=== PATIENT | male | born 1990 ===

== ENCOUNTER 2020-12-27 18:33 | Inpatient (IN) | payer OTHER ==
[~2020-12-27] VITALS: Ht 185.4 cm; Wt 93.1 kg
--- NOTE | 2020-12-27 18:35 | NUR ---
Patient brought in by EMS in respiratory distress. Non rebreather, compressions done in the field. EMS given 2 epi, 2 narcan with no result. Pt in sinus tach. HR 129, 98%, RR12, RR92 45. Respiratory in room. BG 243. Intubation with 8, using MAC 4, 24 at the teeth. 18 G in L AC. Central line in rt groin.
[2020-12-27] MEDS ORDERED: propofol 1000mg/100ml bottle 100 ML IV ONE (18:48)
[2020-12-27 19:13] LABS: BASOPHILS # (AUTO) 0.1 X10'3 (0-0.2); BASOPHILS % (AUTO) 0.8 % (0-1); EOSINOPHILS # (AUTO) 0.1 X10'3 (0-0.9); EOSINOPHILS % (AUTO) 1.2 % (0-6); HEMATOCRIT 43.7 % (42.0-52.0); HEMOGLOBIN 14.7 g/dl (14.0-17.9); LYMPHOCYTES # (AUTO) 1.9 X10'3 (1.1-4.8); LYMPHOCYTES % (AUTO) 28.2 % (21-51); MEAN CORPUSCULAR HEMOGLOBIN 34.4 PG (27.0-31.0); MEAN CORPUSCULAR HGB CONC 33.6 g/dL (33.0-36.5); MEAN CORPUSCULAR VOLUME 102.2 FL (78-98); MEAN PLATELET VOLUME 7.5 FL (7.4-10.4); MONOCYTES # (AUTO) 0.2 X10'3 (0-0.9); MONOCYTES % (AUTO) 3.4 % (2-12); NEUTROPHILS # (AUTO) 4.5 X10'3 (1.8-7.7); NEUTROPHILS % (AUTO) 66.4 % (42-75); PLATELET COUNT 149 X10'3 (140-440); RED BLOOD COUNT 4.27 X10'6 (4.70-6.10); RED CELL DISTRIBUTION WIDTH 15.4 % (11.5-14.5); WHITE BLOOD COUNT 6.7 X10'3 (4.5-11.0)
[2020-12-27 19:25] LABS: ALANINE AMINOTRANSFERASE 137 U/L (12-78); ALBUMIN 3.3 G/DL (3.4-5.0); ALBUMIN/GLOBULIN RATIO 0.9 (1.1-1.5); ALKALINE PHOSPHATASE 224 IU/L (46-116); ANION GAP 23 (8-16); ASPARTATE AMINO TRANSFERASE 536 U/L (10-37); BILIRUBIN,DIRECT 0.2 MG/DL (0-0.3); BILIRUBIN,TOTAL 0.4 MG/DL (0.1-1.0); BLOOD UREA NITROGEN 17 MG/DL (7-18); BUN/CREATININE RATIO 9.7 (5.4-32.0); CALCIUM 7.9 MG/DL (8.5-10.1); CHLORIDE 100 MMOL/L (99-107); CREATINE KINASE 215 U/L (39-308); CREATININE 1.75 MG/DL (0.60-1.10); GLUCOSE 252 MG/DL (70-104); LIPASE 401 U/L (73-393); POTASSIUM 3.8 MMOL/L (3.5-5.1); SODIUM 142 MMOL/L (135-145); TOTAL CARBON DIOXIDE 19.3 MMOL/L (24-32); TOTAL PROTEIN 7.1 G/DL (6.4-8.2); eGFR 45 ML/MIN
[2020-12-27 19:33] LABS: LACTIC SEPSIS 9.2 MMOL/L (0.4-2.0)
[2020-12-27] MEDS ORDERED: normal saline 1000ml 1,000 ML IV ONE (19:35)
[2020-12-27 19:38] LABS: URINE AMPHETAMINE SCREEN NEGATIVE (Neg); URINE BARBITUATE SCREEN NEGATIVE (Neg); URINE BENZODIAZEPINES SCREEN NEGATIVE (Neg); URINE CANNABINOID SCREEN NEGATIVE (Neg); URINE COCAINE SCREEN NEGATIVE (Neg); URINE METHADONE SCREEN NEGATIVE (Neg); URINE OPIATE SCREEN NEGATIVE (Neg); URINE PHENCYCLIDINE SCREEN NEGATIVE (Neg)
[2020-12-27 19:46] LABS: ABG BASE EXCESS -10.2 mmol/L (-2.0-2.0); ABG HCO3 14.1 mmol/L (22.0-26.0); ABG OXYGEN SATURATION 98.3 % (94-97); ABG PO2 (T) 145.7 mmHg (75.0-100.0); ALLEN'S TEST POSITIVE; FCOHb 0.3 % (0.0-3.9); FMetHb 0.4 % (0.0-1.5); FO2Hb 97.6 % (94-97); PATIENT TEMPERATURE 36.9; PEEP 5 cm H2O; RESPIRATORY RATE 16 b/min; TIDAL VOLUME 450 mL; TOTAL HEMOGLOBIN 16.4 G/dl (14.0-18.0)
[2020-12-27] MEDS ORDERED: normal saline 1000ML IV soln IVB ONE ×2 (20:15)
[2020-12-27] MEDS ORDERED: dextrose 50%-water 50ml dispensing syringe IV PRN (21:15)
[2020-12-27] MEDS: Insulin Reg/NS 100units/100mL 100 ML IV SCH (21:15)
[2020-12-27] MEDS ORDERED: dexmedetomidin/NS 400mcg/100ml 100 ML IV SCH (21:25)
--- NOTE | 2020-12-27 21:30 | NUR ---
cooling measures attempted with ice packs in groin and armpits.
--- NOTE | 2020-12-27 22:03 | NUR ---
Pt continues to display seizure like movement when stimulated but also at random moments. Pt body siezes for about a second, then stops. Patient jaw is clenched, biting on the ET tube and OG tube. [employer] Direction Specialist aware.
[2020-12-27] MEDS ORDERED: propofol 1000mg/100ml bottle 100 ML IV SCH (23:00)
[2020-12-27 23:41] LABS: TRIGLYCERIDES 236 MG/DL (20-135)
[2020-12-27] MEDS: midazolam 100mg in NS 100ml 100 ML IV PRN (23:43)
[2020-12-28] VITALS (11 sets, daily range): BP systolic 98–127; BP diastolic 70–94
--- NOTE | 2020-12-28 00:06 | NUR ---
Midazolam titrated to 10mg/ hr. Body spasms decreased to spasms only with body stimulus.
[2020-12-28] MEDS ORDERED: acetaminophen 1,000mg/100ml IV 100 ML IV PRN (00:25)
[2020-12-28] MEDS ORDERED: ringers solution, lacted 1,000 ML IV ONE (00:25)
[2020-12-28 02:00] LABS: ALANINE AMINOTRANSFERASE 580 U/L (12-78); ALBUMIN 3.1 G/DL (3.4-5.0); ALBUMIN/GLOBULIN RATIO 0.9 (1.1-1.5); ALKALINE PHOSPHATASE 234 IU/L (46-116); ANION GAP 14 (8-16); BILIRUBIN,TOTAL 0.6 MG/DL (0.1-1.0); BLOOD UREA NITROGEN 19 MG/DL (7-18); BUN/CREATININE RATIO 13.8 (5.4-32.0); CALCIUM 6.9 MG/DL (8.5-10.1); CHLORIDE 108 MMOL/L (99-107); CKMB RELATIVE INDEX 1.9 RATIO (0-2.5); CREATINE KINASE 226 U/L (39-308); CREATININE 1.38 MG/DL (0.60-1.10); GLUCOSE 147 MG/DL (70-104); MAGNESIUM 1.4 MG/DL (1.5-2.4); POTASSIUM 3.6 MMOL/L (3.5-5.1); SODIUM 145 MMOL/L (135-145); TOTAL CARBON DIOXIDE 22.9 MMOL/L (24-32); TOTAL PROTEIN 6.5 G/DL (6.4-8.2); TRIGLYCERIDES 62 MG/DL (20-135); eGFR 59 ML/MIN
[2020-12-28 02:11] LABS: TROPONIN I 1.35 NG/ML (0.0-0.05)
--- NOTE | 2020-12-28 02:25 | NUR ---
TROPONIN 1.35. SPRUE CUTTING PRESS OPERATOR NOTIFIED.
[2020-12-28 03:30] LABS: ASPARTATE AMINO TRANSFERASE 1985 U/L (10-37)
[2020-12-28 05:28] LABS: ABG BASE EXCESS -1.8 mmol/L (-2.0-2.0); ABG HCO3 20.1 mmol/L (22.0-26.0); ABG OXYGEN SATURATION 98.5 % (94-97); ABG PCO2 (T) 28.4 mmHg (35.0-48.0); ABG PO2 (T) 141.7 mmHg (75.0-100.0); FCOHb 0.5 % (0.0-3.9); FMetHb 0.3 % (0.0-1.5); FO2Hb 97.7 % (94-97); PATIENT TEMPERATURE 37.7; PEEP 5 cm H2O; RESPIRATORY RATE 16 b/min; TIDAL VOLUME 450 mL; TOTAL HEMOGLOBIN 15.2 G/dl (14.0-18.0)
[2020-12-28 05:39] LABS: BASOPHILS % (AUTO) 0.2 % (0-1); EOSINOPHILS % (AUTO) 0 % (0-6); HEMATOCRIT 40.6 % (42.0-52.0); HEMOGLOBIN 13.9 g/dl (14.0-17.9); LYMPHOCYTES # (AUTO) 0.1 X10'3 (1.1-4.8); LYMPHOCYTES % (AUTO) 1.1 % (21-51); MEAN CORPUSCULAR HEMOGLOBIN 34.4 PG (27.0-31.0); MEAN CORPUSCULAR HGB CONC 34.2 g/dL (33.0-36.5); MEAN CORPUSCULAR VOLUME 100.4 FL (78-98); MEAN PLATELET VOLUME 8.2 FL (7.4-10.4); MONOCYTES # (AUTO) 0.2 X10'3 (0-0.9); MONOCYTES % (AUTO) 1.7 % (2-12); NEUTROPHILS # (AUTO) 11.7 X10'3 (1.8-7.7); PLATELET COUNT 106 X10'3 (140-440); RED BLOOD COUNT 4.05 X10'6 (4.70-6.10); RED CELL DISTRIBUTION WIDTH 15.3 % (11.5-14.5); WHITE BLOOD COUNT 12.1 X10'3 (4.5-11.0)
[2020-12-28 05:40] LABS: COLOR,URINE YELLOW (Yellow); UA COLLECTION TYPE FOLEY CATH
[2020-12-28 05:41] LABS: CLARITY,URINE CLOUDY (Clear); PROTEIN,URINE 30 mg/dl (Neg)
[2020-12-28 05:42] LABS: GLUCOSE, URINE NEGATIVE (Neg); KETONES,URINE TRACE mg/dl (Neg); LEUKOCYTE ESTERASE ,URINE NEGATIVE (Neg); NITRITES, URINE NEGATIVE (Neg); OCCULT BLOOD,URINE LARGE (Neg); UROBILINOGEN,URINE 0.2 E.U/dL (0.2-1.0)
[2020-12-28 05:51] LABS: AMORPHOUS URATES 2+; PARTIAL THROMBOPLASTIN TIME 22 SECONDS (22-32)
[2020-12-28 05:52] LABS: BACTERIA,URINE NONE SEEN /HPF (Neg); MUCUS STRANDS NONE SEEN /LPF (Neg); RBC,URINE 0-2 /HPF (0-2); SQUAMOUS EPITHELIAL CELL,UR NONE SEEN /LPF (FEW); WBC,URINE 0-4 /HPF (0-4)
[2020-12-28 05:55] LABS: ANISOCYTOSIS 1+; PLATELET ESTIMATE DECREASED; TOTAL CELLS COUNTED 100
[2020-12-28] MEDS: mineral oil/petrolatum ophthal oint EACHEYE SCH ×6 (07:10→19:39)
--- NOTE | 2020-12-28 07:15 | NUR ---
ATTEMPTING TO REACH STAMP COLLECTOR REGARDING PT HAVING FEVER OF 101.3 BUT HAS HIGH AST/ALT ENZYMES AND WANT TO CONFIRM ORDER BEFORE GIVING MED DUE TO LABS
--- NOTE | 2020-12-28 07:27 | NUR ---
spoke with toy parts former supervisor danielle. received verbal order for ibuprofen 400mg po through OG tube q6h prn fever. order placed as received
[2020-12-28 07:49] LABS: ALBUMIN 2.8 G/DL (3.4-5.0); ANION GAP 14 (8-16); BLOOD UREA NITROGEN 20 MG/DL (7-18); BUN/CREATININE RATIO 16.9 (5.4-32.0); CALCIUM 7.4 MG/DL (8.5-10.1); CHLORIDE 109 MMOL/L (99-107); CREATININE 1.18 MG/DL (0.60-1.10); GLUCOSE 139 MG/DL (70-104); MAGNESIUM 1.5 MG/DL (1.5-2.4); POTASSIUM 3.7 MMOL/L (3.5-5.1); SODIUM 145 MMOL/L (135-145); TOTAL CARBON DIOXIDE 21.6 MMOL/L (24-32); eGFR 71 ML/MIN
[2020-12-28] MEDS: ibuprofen tablet 400 MG TABLET PO PRN (07:57)
[2020-12-28] MEDS ORDERED: heparin, porcine 5000 units/ml vial SQ SCH (08:00)
[2020-12-28] MEDS ORDERED: pantoprazole 40 MG vial IV SCH (08:00)
[2020-12-28] MEDS: insulin Lispro (HumaLOG) vial - multi-dose SQ SCH ×3 (09:00→18:00)
[2020-12-28] MEDS ORDERED: UNABLE TO OBTAIN PO (10:40)
[2020-12-28 13:18] LABS: ANION GAP 12 (8-16); BLOOD UREA NITROGEN 21 MG/DL (7-18); BUN/CREATININE RATIO 16.5 (5.4-32.0); CALCIUM 7.6 MG/DL (8.5-10.1); CHLORIDE 107 MMOL/L (99-107); CKMB RELATIVE INDEX 1.1 RATIO (0-2.5); CREATINE KINASE 473 U/L (39-308); CREATININE 1.27 MG/DL (0.60-1.10); GLUCOSE 115 MG/DL (70-104); MAGNESIUM 1.8 MG/DL (1.5-2.4); POTASSIUM 3.7 MMOL/L (3.5-5.1); SODIUM 144 MMOL/L (135-145); TOTAL CARBON DIOXIDE 24.7 MMOL/L (24-32); eGFR 65 ML/MIN
[2020-12-28 13:23] LABS: TROPONIN I 0.87 NG/ML (0.0-0.05)
[2020-12-28] MEDS ORDERED: CISatracurium besylate inj. 100 MG in normal saline 100ml IV soln 90 ML IV PRN (14:20)
[2020-12-28] MEDS: FENTANYL-0.9 % NACL/PF 100 ML IV PRN ×2 (14:45→21:38)
[2020-12-28] MEDS ORDERED: potassium Cl 20 mEq SR tablet PO PRN ×2 (15:35)
[2020-12-28] MEDS ORDERED: potassium Cl 40MEQ/250ML bag 270 ML IV PRN (15:35)
[2020-12-28] MEDS ORDERED: acetaminophen 325mg tablet PO PRN ×2 (15:35)
[2020-12-28] MEDS ORDERED: ondansetron/PF 4mg/2ml inj IV PRN (15:35)
[2020-12-28] MEDS ORDERED: potassium Cl 40MEQ/1/2NS 520ml 520 ML IV PRN ×2 (15:35)
[2020-12-28] MEDS ORDERED: magnesium hydroxide 30ml (MOM) UD suspension PO PRN (15:35)
[2020-12-28] MEDS ORDERED: normal saline 1000ml 1,000 ML IV SCH (15:35)
[2020-12-28] MEDS ORDERED: CISatracurium **Bolus** 2 mg/ml inj IV PRN (15:35)
[2020-12-28] MEDS ORDERED: LIDOcaine 2% 10ml TOPICAL JELLY (Urojet) TP ONE (15:35)
[2020-12-28 17:39] LABS: ABG BASE EXCESS -3.1 mmol/L (-2.0-2.0); ABG HCO3 21.5 mmol/L (22.0-26.0); ABG OXYGEN SATURATION 98.6 % (94-97); ABG PCO2 (T) 31.4 mmHg (35.0-48.0); ABG PO2 (T) 119.4 mmHg (75.0-100.0); FCOHb 0.2 % (0.0-3.9); FMetHb 0.3 % (0.0-1.5); FO2Hb 98.1 % (94-97); PEEP 5 cm H2O; RESPIRATORY RATE 16 b/min; TIDAL VOLUME 488 mL; TOTAL HEMOGLOBIN 15.2 G/dl (14.0-18.0)
[2020-12-28] MEDS: famotidine/PF 10 mg/ml inj IV SCH (19:39)
[2020-12-28] MEDS: heparin, porcine 5000 units/ml vial SQ SCH (19:39)
[2020-12-28] MEDS: CISatracurium besylate inj. 100 MG in normal saline 100ml IV soln 90 ML IV PRN (19:57)
[2020-12-28] MEDS: docusate sod 100mg capsule PO SCH (20:00)
[2020-12-28] MEDS: sennosides/docusate sodium tablet PO SCH (21:00)
[2020-12-28] MEDS: Insulin Reg/NS 100units/100mL 100 ML IV SCH (21:15)
[2020-12-28 21:27] LABS: ABG HCO3 19.8 mmol/L (22.0-26.0); ABG OXYGEN SATURATION 85.1 % (94-97); ALLEN'S TEST POSITIVE; FCOHb 0.3 % (0.0-3.9); FMetHb 0.2 % (0.0-1.5); FO2Hb 84.7 % (94-97); PATIENT TEMPERATURE 32.6; PEEP 5 cm H2O; RESPIRATORY RATE 16 b/min; TIDAL VOLUME 450 mL; TOTAL HEMOGLOBIN 14.7 G/dl (14.0-18.0)
[2020-12-28 21:33] LABS: ALBUMIN 2.7 G/DL (3.4-5.0); ANION GAP 10 (8-16); BLOOD UREA NITROGEN 18 MG/DL (7-18); BUN/CREATININE RATIO 24.3 (5.4-32.0); CALCIUM 7.1 MG/DL (8.5-10.1); CHLORIDE 110 MMOL/L (99-107); CKMB RELATIVE INDEX 1.1 RATIO (0-2.5); CREATINE KINASE 449 U/L (39-308); CREATININE 0.74 MG/DL (0.60-1.10); GLUCOSE 83 MG/DL (70-104); POTASSIUM 3.1 MMOL/L (3.5-5.1); SODIUM 145 MMOL/L (135-145); TOTAL CARBON DIOXIDE 24.8 MMOL/L (24-32); TROPONIN I 0.33 NG/ML (0.0-0.05); eGFR > 90 ML/MIN
[2020-12-28] MEDS ORDERED: albumin (Human) 5% 250ml 250 ML IV ONE ×2 (21:35)
[2020-12-28] MEDS ORDERED: albumin (Human) 5% 250ml 500 ML IV ONE (21:49)
[2020-12-29] VITALS (23 sets, daily range): BP systolic 104–129; BP diastolic 77–97
[2020-12-29] MEDS: mineral oil/petrolatum ophthal oint EACHEYE SCH ×6 (00:31→20:04)
[2020-12-29] MEDS: CISatracurium besylate inj. 100 MG in normal saline 100ml IV soln 90 ML IV PRN ×2 (01:55→08:07)
[2020-12-29 03:19] LABS: ABG BASE EXCESS -4.3 mmol/L (-2.0-2.0); ABG HCO3 19.8 mmol/L (22.0-26.0); ABG OXYGEN SATURATION 97.6 % (94-97); ABG PCO2 (T) 28.1 mmHg (35.0-48.0); ABG PO2 (T) 84.9 mmHg (75.0-100.0); ALLEN'S TEST POSITIVE; FCOHb 0.3 % (0.0-3.9); FMetHb 0.2 % (0.0-1.5); FO2Hb 97.1 % (94-97); PATIENT TEMPERATURE 33.1; PEEP 5 cm H2O; RESPIRATORY RATE 16 b/min; TIDAL VOLUME 450 mL; TOTAL HEMOGLOBIN 13.2 G/dl (14.0-18.0)
[2020-12-29 03:52] LABS: PARTIAL THROMBOPLASTIN TIME 36 SECONDS (22-32)
[2020-12-29 04:07] LABS: ALANINE AMINOTRANSFERASE 591 U/L (12-78); ALBUMIN 2.7 G/DL (3.4-5.0); ALKALINE PHOSPHATASE 125 IU/L (46-116); ANION GAP 10 (8-16); BLOOD UREA NITROGEN 19 MG/DL (7-18); BUN/CREATININE RATIO 27.5 (5.4-32.0); CALCIUM 6.9 MG/DL (8.5-10.1); CHLORIDE 111 MMOL/L (99-107); CKMB RELATIVE INDEX 1.2 RATIO (0-2.5); CREATINE KINASE 424 U/L (39-308); CREATININE 0.69 MG/DL (0.60-1.10); GLUCOSE 62 MG/DL (70-104); MAGNESIUM 1.8 MG/DL (1.5-2.4); PHOSPHORUS 1.9 MG/DL (2.3-4.5); POTASSIUM 3.6 MMOL/L (3.5-5.1); SODIUM 144 MMOL/L (135-145); TOTAL CARBON DIOXIDE 23.2 MMOL/L (24-32); TOTAL PROTEIN 5.4 G/DL (6.4-8.2); TROPONIN I 0.23 NG/ML (0.0-0.05); eGFR > 90 ML/MIN
[2020-12-29 04:08] LABS: ASPARTATE AMINO TRANSFERASE 1829 U/L (10-37)
[2020-12-29 04:16] LABS: EOSINOPHILS # (AUTO) 0.1 X10'3 (0-0.9); EOSINOPHILS % (AUTO) 3.8 % (0-6); HEMATOCRIT 36.2 % (42.0-52.0); HEMOGLOBIN 12.6 g/dl (14.0-17.9); LYMPHOCYTES # (AUTO) 0.4 X10'3 (1.1-4.8); LYMPHOCYTES % (AUTO) 9.7 % (21-51); MEAN CORPUSCULAR HEMOGLOBIN 34.9 PG (27.0-31.0); MEAN CORPUSCULAR HGB CONC 34.8 g/dL (33.0-36.5); MEAN CORPUSCULAR VOLUME 100.1 FL (78-98); MEAN PLATELET VOLUME 7.7 FL (7.4-10.4); MONOCYTES % (AUTO) 1.2 % (2-12); NEUTROPHILS # (AUTO) 3.2 X10'3 (1.8-7.7); NEUTROPHILS % (AUTO) 84.3 % (42-75); RED BLOOD COUNT 3.61 X10'6 (4.70-6.10); RED CELL DISTRIBUTION WIDTH 15.3 % (11.5-14.5); WHITE BLOOD COUNT 3.8 X10'3 (4.5-11.0)
[2020-12-29 04:29] LABS: PLATELET COUNT 56 X10'3 (140-440)
[2020-12-29] MEDS: FENTANYL-0.9 % NACL/PF 100 ML IV PRN ×3 (04:38→21:59)
[2020-12-29] MEDS: midazolam 100mg in NS 100ml 100 ML IV PRN (04:39)
[2020-12-29] MEDS ORDERED: potassium phosphate inj 15 MMOL in normal saline 250ml IV soln 250 ML IV ONE (04:50)
[2020-12-29] MEDS ORDERED: ringers solution, lacted 1,000 ML IV ONE (04:50)
[2020-12-29] MEDS: CALCIUM GLUC 1gm/50ml NACL,iso 50 ML IV SCH ×2 (05:14→05:27)
[2020-12-29] MEDS: ringers solution, lacted 1,000 ML IV SCH ×3 (06:13→21:56)
[2020-12-29] MEDS: heparin, porcine 5000 units/ml vial SQ SCH (08:00)
[2020-12-29] MEDS: docusate sod 100mg capsule PO SCH ×2 (08:00→20:00)
[2020-12-29] MEDS: famotidine/PF 10 mg/ml inj IV SCH ×2 (08:17→20:03)
[2020-12-29 08:45] LABS: ABG HCO3 22.3 mmol/L (22.0-26.0); ABG OXYGEN SATURATION 96.9 % (94-97); ABG PCO2 (T) 34.2 mmHg (35.0-48.0); ABG PO2 (T) 76.8 mmHg (75.0-100.0); ALLEN'S TEST POSITIVE; FCOHb 0.2 % (0.0-3.9); FMetHb 0.3 % (0.0-1.5); FO2Hb 96.4 % (94-97); PEEP 5 cm H2O; RESPIRATORY RATE 14 b/min; TIDAL VOLUME 478 mL; TOTAL HEMOGLOBIN 12.9 G/dl (14.0-18.0)
[2020-12-29] MEDS: insulin Lispro (HumaLOG) vial - multi-dose SQ SCH ×3 (09:00→18:00)
[2020-12-29 09:46] LABS: ALBUMIN 2.4 G/DL (3.4-5.0); ANION GAP 8 (8-16); BLOOD UREA NITROGEN 15 MG/DL (7-18); BUN/CREATININE RATIO 24.2 (5.4-32.0); CALCIUM 7.8 MG/DL (8.5-10.1); CHLORIDE 112 MMOL/L (99-107); CKMB RELATIVE INDEX 1.3 RATIO (0-2.5); CREATINE KINASE 463 U/L (39-308); CREATININE 0.62 MG/DL (0.60-1.10); GLUCOSE 74 MG/DL (70-104); MAGNESIUM 1.7 MG/DL (1.5-2.4); POTASSIUM 3.3 MMOL/L (3.5-5.1); SODIUM 145 MMOL/L (135-145); TOTAL CARBON DIOXIDE 25.4 MMOL/L (24-32); TROPONIN I 0.19 NG/ML (0.0-0.05); eGFR > 90 ML/MIN
--- NOTE | 2020-12-29 11:22 | NUR ---
1000- Critical care rounds. Reported labs of elevated liver enzymes, Plt of 56, decreased blood glucose level and no nutrition ordered currently, increased diastolic BP. Order for tube feed to start, EEG, MRI of head no contrast, hold heparin, no orders for BP. 1100-Follow up on round orders-EEG tomorrow after patient normothermic, OK to change MRI to nuc med scan (d/t MRI screening unable to be completed)
--- NOTE | 2020-12-29 11:41 | NUR ---
Initial: Pt admitted s/p cardiac arrest in the field, currently intubated and sedated, okay to start TF per Sailmaker, see recs below. No open wounds per RN. SOSA 12/28. Will continue to monitor for TF tolerance and adjust needs as medically indicated. Recs: 1) Continuous TF using Vital AF at 75ml/hr goal to provide 1800ml volume, 2160kcals, 135g protein, 1458ml free water 2) Additional water flush 200ml Q4H 3) PALB QM/Th; daily wts 4) Routine bowel care 5) Monitor TF tolerance Addendum: 12/29/20 at [address] Amended: Links added.
[2020-12-29 15:01] LABS: CKMB RELATIVE INDEX 1.3 RATIO (0-2.5); CREATINE KINASE 454 U/L (39-308); TROPONIN I 0.17 NG/ML (0.0-0.05)
--- NOTE | 2020-12-29 16:34 | NUR ---
[id number]- to [facility] for brain scan. 1545- Continue to titrate sedation and nimbex for fluctuating bis. 1636- bis ranging from 91-2
[2020-12-29 16:54] LABS: ABG BASE EXCESS -2.6 mmol/L (-2.0-2.0); ABG HCO3 22.6 mmol/L (22.0-26.0); ABG OXYGEN SATURATION 97.3 % (94-97); ABG PCO2 (T) 34.6 mmHg (35.0-48.0); ABG PO2 (T) 80.8 mmHg (75.0-100.0); FCOHb 0.2 % (0.0-3.9); FMetHb 0.2 % (0.0-1.5); FO2Hb 96.9 % (94-97); PATIENT TEMPERATURE 33.1; PEEP 5 cm H2O; RESPIRATORY RATE 14 b/min; TIDAL VOLUME 476 mL; TOTAL HEMOGLOBIN 13.5 G/dl (14.0-18.0)
[2020-12-29 17:07] LABS: ALBUMIN 2.2 G/DL (3.4-5.0); ANION GAP 13 (8-16); BLOOD UREA NITROGEN 13 MG/DL (7-18); BUN/CREATININE RATIO 21.3 (5.4-32.0); CALCIUM 7.3 MG/DL (8.5-10.1); CHLORIDE 110 MMOL/L (99-107); CREATININE 0.61 MG/DL (0.60-1.10); GLUCOSE 75 MG/DL (70-104); POTASSIUM 3.4 MMOL/L (3.5-5.1); SODIUM 144 MMOL/L (135-145); TOTAL CARBON DIOXIDE 20.7 MMOL/L (24-32); eGFR > 90 ML/MIN
[2020-12-29] MEDS: sennosides/docusate sodium tablet PO SCH (20:04)
[2020-12-29 20:32] LABS: ABG BASE EXCESS -1.9 mmol/L (-2.0-2.0); ABG HCO3 23.8 mmol/L (22.0-26.0); ABG OXYGEN SATURATION 97.1 % (94-97); ABG PCO2 (T) 38.2 mmHg (35.0-48.0); ALLEN'S TEST POSITIVE; FCOHb 0.1 % (0.0-3.9); FMetHb 0.3 % (0.0-1.5); FO2Hb 96.7 % (94-97); PATIENT TEMPERATURE 33.8; PEEP 5 cm H2O; RESPIRATORY RATE 14 b/min; TIDAL VOLUME 450 mL; TOTAL HEMOGLOBIN 13.8 G/dl (14.0-18.0)
[2020-12-29] MEDS: Insulin Reg/NS 100units/100mL 100 ML IV SCH (21:15)
[2020-12-29 23:08] LABS: ALBUMIN 2.4 G/DL (3.4-5.0); ANION GAP 9 (8-16); BLOOD UREA NITROGEN 11 MG/DL (7-18); BUN/CREATININE RATIO 19.3 (5.4-32.0); CALCIUM 7.7 MG/DL (8.5-10.1); CHLORIDE 108 MMOL/L (99-107); CKMB RELATIVE INDEX 1.4 RATIO (0-2.5); CREATINE KINASE 468 U/L (39-308); CREATININE 0.57 MG/DL (0.60-1.10); GLUCOSE 76 MG/DL (70-104); POTASSIUM 3.1 MMOL/L (3.5-5.1); SODIUM 142 MMOL/L (135-145); TOTAL CARBON DIOXIDE 24.9 MMOL/L (24-32); TROPONIN I 0.12 NG/ML (0.0-0.05); eGFR > 90 ML/MIN
[2020-12-30] VITALS (22 sets, daily range): BP systolic 84–135; BP diastolic 38–88
[2020-12-30] MEDS: midazolam 100mg in NS 100ml 100 ML IV PRN ×2 (00:27→20:04)
[2020-12-30] MEDS: ibuprofen tablet 400 MG TABLET PO PRN (02:44)
[2020-12-30 02:45] LABS: ABG BASE EXCESS -3.2 mmol/L (-2.0-2.0); ABG HCO3 23.7 mmol/L (22.0-26.0); ABG OXYGEN SATURATION 91.9 % (94-97); ABG PCO2 (T) 46.3 mmHg (35.0-48.0); ABG PO2 (T) 62.2 mmHg (75.0-100.0); ALLEN'S TEST POSITIVE; FCOHb 0.2 % (0.0-3.9); FMetHb 0.3 % (0.0-1.5); FO2Hb 91.4 % (94-97); PATIENT TEMPERATURE 35.5; PEEP 5 cm H2O; RESPIRATORY RATE 14 b/min; TIDAL VOLUME 450 mL; TOTAL HEMOGLOBIN 14.5 G/dl (14.0-18.0)
[2020-12-30 03:39] LABS: BASOPHILS % (AUTO) 0.3 % (0-1); EOSINOPHILS % (AUTO) 0.9 % (0-6); HEMATOCRIT 38.3 % (42.0-52.0); HEMOGLOBIN 13.3 g/dl (14.0-17.9); LYMPHOCYTES # (AUTO) 0.1 X10'3 (1.1-4.8); LYMPHOCYTES % (AUTO) 5.2 % (21-51); MEAN CORPUSCULAR HGB CONC 34.8 g/dL (33.0-36.5); MEAN CORPUSCULAR VOLUME 100.3 FL (78-98); MEAN PLATELET VOLUME 7.8 FL (7.4-10.4); MONOCYTES % (AUTO) 1.2 % (2-12); NEUTROPHILS # (AUTO) 1.7 X10'3 (1.8-7.7); NEUTROPHILS % (AUTO) 92.4 % (42-75); PLATELET COUNT 55 X10'3 (140-440); RED BLOOD COUNT 3.81 X10'6 (4.70-6.10); RED CELL DISTRIBUTION WIDTH 15.7 % (11.5-14.5); WHITE BLOOD COUNT 1.9 X10'3 (4.5-11.0)
[2020-12-30 03:50] LABS: PARTIAL THROMBOPLASTIN TIME 32 SECONDS (22-32)
[2020-12-30] MEDS: mineral oil/petrolatum ophthal oint EACHEYE SCH ×7 (04:00→23:27)
[2020-12-30 04:13] LABS: ALANINE AMINOTRANSFERASE 919 U/L (12-78); ALBUMIN 2.2 G/DL (3.4-5.0); ALBUMIN/GLOBULIN RATIO 0.7 (1.1-1.5); ALKALINE PHOSPHATASE 121 IU/L (46-116); ANION GAP 9 (8-16); BILIRUBIN,TOTAL 0.4 MG/DL (0.1-1.0); BLOOD UREA NITROGEN 10 MG/DL (7-18); BUN/CREATININE RATIO 15.4 (5.4-32.0); CALCIUM 7.5 MG/DL (8.5-10.1); CHLORIDE 107 MMOL/L (99-107); CREATININE 0.65 MG/DL (0.60-1.10); GLUCOSE 88 MG/DL (70-104); MAGNESIUM 1.2 MG/DL (1.5-2.4); PHOSPHORUS 3.4 MG/DL (2.3-4.5); POTASSIUM 3.2 MMOL/L (3.5-5.1); SODIUM 141 MMOL/L (135-145); TOTAL CARBON DIOXIDE 25.5 MMOL/L (24-32); TOTAL PROTEIN 5.2 G/DL (6.4-8.2); eGFR > 90 ML/MIN
[2020-12-30] MEDS: CISatracurium besylate inj. 100 MG in normal saline 100ml IV soln 90 ML IV PRN (04:28)
[2020-12-30 04:29] LABS: ASPARTATE AMINO TRANSFERASE 2699 U/L (10-37)
[2020-12-30 05:13] LABS: TOTAL CELLS COUNTED 100
[2020-12-30 05:14] LABS: ANISOCYTOSIS FEW; PLATELET ESTIMATE DECREASED
[2020-12-30 05:16] LABS: LARGE PLATELETS FEW
[2020-12-30] MEDS ORDERED: Potassium Cl inj 40 MEQ in normal saline 250ml IV soln 250 ML IV ONE (05:35)
[2020-12-30] MEDS ORDERED: magnesium 4gm in 100ml NS 100 ML IV ONE ×2 (05:35→06:33)
[2020-12-30] MEDS: FENTANYL-0.9 % NACL/PF 100 ML IV PRN ×3 (06:21→23:27)
[2020-12-30] MEDS: docusate sod 100mg capsule PO SCH ×2 (08:00→20:00)
[2020-12-30] MEDS ORDERED: NORepinephrine 8mg/ 250ml NS 250 ML IV ONE (08:36)
[2020-12-30] MEDS: insulin Lispro (HumaLOG) vial - multi-dose SQ SCH ×3 (09:00→16:48)
[2020-12-30] MEDS: famotidine/PF 10 mg/ml inj IV SCH ×2 (09:10→20:05)
[2020-12-30] MEDS ORDERED: normal saline 1000ml 1,000 ML IVB ONE (09:20)
[2020-12-30] MEDS: normal saline 1000ml 1,000 ML IV SCH ×2 (09:22→16:48)
[2020-12-30] MEDS: piperacillin/tazo 4.5gm/100ml 100 ML IV SCH ×3 (09:57→23:27)
[2020-12-30] MEDS ORDERED: iohexol 350MG/ML 100ml bottle IV ONE (10:02)
[2020-12-30 10:38] LABS: ALBUMIN 1.8 G/DL (3.4-5.0); BLOOD UREA NITROGEN 12 MG/DL (7-18); BUN/CREATININE RATIO 11.3 (5.4-32.0); CALCIUM 6.9 MG/DL (8.5-10.1); CHLORIDE 108 MMOL/L (99-107); CKMB RELATIVE INDEX 1.4 RATIO (0-2.5); CREATINE KINASE 182 U/L (39-308); CREATININE 1.06 MG/DL (0.60-1.10); GLUCOSE 100 MG/DL (70-104); POTASSIUM 3.4 MMOL/L (3.5-5.1); TOTAL CARBON DIOXIDE 25.5 MMOL/L (24-32); eGFR 80 ML/MIN
[2020-12-30 10:45] LABS: ANION GAP 8 (8-16); SODIUM 141 MMOL/L (135-145)
[2020-12-30] MEDS: vancomycin/NS 1 GM ADD-VANTAGE 250 ML IV SCH ×2 (11:15→16:48)
[2020-12-30 12:26] LABS: CLARITY,URINE CLOUDY (Clear); COLOR,URINE YELLOW (Yellow); GLUCOSE, URINE NEGATIVE (Neg); KETONES,URINE NEGATIVE (Neg); OCCULT BLOOD,URINE SMALL (Neg); PROTEIN,URINE 30 mg/dl (Neg); UA COLLECTION TYPE NON-SPECIFIED
[2020-12-30 12:27] LABS: LEUKOCYTE ESTERASE ,URINE NEGATIVE (Neg); NITRITES, URINE NEGATIVE (Neg)
[2020-12-30 12:33] LABS: COARSE GRANULAR CAST >30 /LPF (NEGATIVE); SQUAMOUS EPITHELIAL CELL,UR FEW /LPF (FEW)
[2020-12-30 12:34] LABS: BACTERIA,URINE 2+ /HPF (Neg); MUCUS STRANDS FEW /LPF (Neg); TRANSITIONAL EPI CELLS,URINE FEW /HPF
[2020-12-30 12:35] LABS: WBC,URINE 0-4 /HPF (0-4)
[2020-12-30 12:36] LABS: AMORPHOUS URATES 2+; RBC,URINE 0-2 /HPF (0-2)
--- NOTE | 2020-12-30 13:13 | NUR ---
Wound care received low Aristeo Score alert. Upon arrival to patient's room, patient is unstable, being manually ventilated, and was being transferred to CT for a scan. Wound care will f/u when patient is more stable.
--- NOTE | 2020-12-30 13:32 | NUR ---
0700- pt tachycardic, hr 130- 140, sats 95%f on 60%. overbreathing vent at times. [id number] patient HR 145, sats down to 72%, placed on 100% no improvement, requiring manual ventilation, BP dropping,1000 cc bolus started, able to place on vent off and on with manual ventilations periodically. BP down to 70's/30's, levophed initialted, breathing pattten paradoxical in look. Dr Dudley notified, continue with course of care, MD in route. MD arrived, domingo cultures, CT of chest with contrast, antibiotics. 1100- EEG completed, dysfunction noted in occipital region. 1300- HR down to 127, BP 99/59 on 0.35currently. Addendum: 12/30/20 at 1509 by Karen Shepard RN 0700- Patient does not respond to noxious stimuli, to deep pressure to toe nail/ or sternal rub
[2020-12-30] MEDS: NORepinephrine 8mg/ 250ml NS 250 ML IV SCH ×2 (15:23→19:43)
[2020-12-30] MEDS ORDERED: normal saline 1000ml 1,000 ML IV ONE (15:30)
--- NOTE | 2020-12-30 16:01 | NUR ---
1530- [facility] here, does not recognize patient, took pts picture to help with ID. [facility] does not have portable scanners, can only fingerprint at the assisted
--- NOTE | 2020-12-30 18:03 | NUR ---
1745- Notified donor network of patient status. Hamilton from donor network is going to reach out to his air surveillance operator contacts to see if they can help id the patient.
--- NOTE | 2020-12-30 18:30 | NUR ---
Patient in room ICU 2039. I have received report from JAY Jones and had the opportunity to ask questions and assume patient care.
--- NOTE | 2020-12-30 18:35 | NUR ---
Problems reprioritized. Patient report given, questions answered & plan of care reviewed with Ivis.
[2020-12-30] MEDS ORDERED: VANCOMYCIN 1GM/200ML IVPB 200 ML IV SCH (20:00)
[2020-12-30] MEDS: sennosides/docusate sodium tablet PO SCH (20:05)
[2020-12-30 20:20] LABS: ABG BASE EXCESS -6.8 mmol/L (-2.0-2.0); ABG HCO3 19.9 mmol/L (22.0-26.0); ABG OXYGEN SATURATION 87.9 % (94-97); ABG PCO2 (T) 44.3 mmHg (35.0-48.0); ABG PO2 (T) 58.8 mmHg (75.0-100.0); ALLEN'S TEST POSITIVE; FCOHb 0.3 % (0.0-3.9); FMetHb 0.3 % (0.0-1.5); FO2Hb 87.4 % (94-97); PATIENT TEMPERATURE 36.9; PEEP 8 cm H2O; TIDAL VOLUME 450 mL; TOTAL HEMOGLOBIN 13.6 G/dl (14.0-18.0)
[2020-12-30] MEDS ORDERED: rocuronium 10mg/ml inj IV ONE (21:25)
[2020-12-30 23:53] LABS: ABG BASE EXCESS -8.2 mmol/L (-2.0-2.0); ABG HCO3 20.6 mmol/L (22.0-26.0); ABG OXYGEN SATURATION 90.3 % (94-97); ABG PCO2 (T) 55.4 mmHg (35.0-48.0); ABG PO2 (T) 65.5 mmHg (75.0-100.0); ALLEN'S TEST POSITIVE; FMetHb 0.4 % (0.0-1.5); FO2Hb 89.9 % (94-97); PATIENT TEMPERATURE 36.7; PEEP 10 cm H2O; TIDAL VOLUME 450 mL; TOTAL HEMOGLOBIN 13.1 G/dl (14.0-18.0)
[2020-12-31] VITALS (24 sets, daily range): BP systolic 84–136; BP diastolic 45–101
[2020-12-31] MEDS ORDERED: CISatracurium besylate inj. 100 MG in normal saline 100ml IV soln 90 ML IV PRN (00:45)
[2020-12-31] MEDS: NORepinephrine 8mg/ 250ml NS 250 ML IV SCH (01:05)
[2020-12-31] MEDS: midazolam 100mg in NS 100ml 100 ML IV PRN ×2 (01:10→06:46)
[2020-12-31] MEDS: vancomycin/NS 1 GM ADD-VANTAGE 250 ML IV SCH ×3 (01:58→17:02)
[2020-12-31] MEDS: NORepinephrine 32 MG in Normal Saline 250ml IV soln IV SCH ×3 (02:13→16:10)
[2020-12-31] MEDS: FENTANYL-0.9 % NACL/PF 100 ML IV PRN ×3 (02:18→11:15)
[2020-12-31 02:47] LABS: ABG BASE EXCESS -9.2 mmol/L (-2.0-2.0); ABG HCO3 18.9 mmol/L (22.0-26.0); ABG OXYGEN SATURATION 89.6 % (94-97); ABG PCO2 (T) 48.9 mmHg (35.0-48.0); ABG PO2 (T) 63.4 mmHg (75.0-100.0); ALLEN'S TEST POSITIVE; FCOHb 0.3 % (0.0-3.9); FMetHb 0.2 % (0.0-1.5); FO2Hb 89.2 % (94-97); PATIENT TEMPERATURE 36.7; PEEP 12 cm H2O; TIDAL VOLUME 450 mL; TOTAL HEMOGLOBIN 13.1 G/dl (14.0-18.0)
[2020-12-31] MEDS: vasopressin inj. 40 UNIT in dextrose 5%-water 50ml 38 ML IV SCH (03:40)
[2020-12-31] MEDS: mineral oil/petrolatum ophthal oint EACHEYE SCH ×5 (03:41→20:16)
[2020-12-31] MEDS: normal saline 1000ml 1,000 ML IV SCH (03:41)
[2020-12-31 03:43] LABS: BASOPHILS % (AUTO) 0.2 % (0-1); HEMOGLOBIN 12.5 g/dl (14.0-17.9); LYMPHOCYTES # (AUTO) 0.1 X10'3 (1.1-4.8)
[2020-12-31 03:46] LABS: EOSINOPHILS % (AUTO) 4.5 % (0-6); LYMPHOCYTES % (AUTO) 13.8 % (21-51); MEAN CORPUSCULAR HEMOGLOBIN 34.7 PG (27.0-31.0); MEAN CORPUSCULAR HGB CONC 33.8 g/dL (33.0-36.5); MEAN CORPUSCULAR VOLUME 102.6 FL (78-98); MEAN PLATELET VOLUME 9.6 FL (7.4-10.4); MONOCYTES % (AUTO) 6.9 % (2-12); NEUTROPHILS # (AUTO) 0.5 X10'3 (1.8-7.7); NEUTROPHILS % (AUTO) 74.6 % (42-75); PLATELET COUNT 80 X10'3 (140-440); RED BLOOD COUNT 3.61 X10'6 (4.70-6.10); RED CELL DISTRIBUTION WIDTH 15.7 % (11.5-14.5)
[2020-12-31 03:57] LABS: PARTIAL THROMBOPLASTIN TIME 39 SECONDS (22-32)
[2020-12-31 04:02] LABS: ALANINE AMINOTRANSFERASE 601 U/L (12-78); ALBUMIN 1.5 G/DL (3.4-5.0); ALBUMIN/GLOBULIN RATIO 0.5 (1.1-1.5); ALKALINE PHOSPHATASE 133 IU/L (46-116); ANION GAP 9 (8-16); BILIRUBIN,TOTAL 0.3 MG/DL (0.1-1.0); BLOOD UREA NITROGEN 14 MG/DL (7-18); CALCIUM 6.6 MG/DL (8.5-10.1); CHLORIDE 108 MMOL/L (99-107); CREATININE 1.08 MG/DL (0.60-1.10); GLUCOSE 126 MG/DL (70-104); MAGNESIUM 1.8 MG/DL (1.5-2.4); POTASSIUM 3.4 MMOL/L (3.5-5.1); PREALBUMIN 15.3 MG/DL (19-36); SODIUM 141 MMOL/L (135-145); TOTAL CARBON DIOXIDE 24.3 MMOL/L (24-32); TOTAL PROTEIN 4.7 G/DL (6.4-8.2); eGFR 78 ML/MIN
[2020-12-31 04:03] LABS: ASPARTATE AMINO TRANSFERASE 1082 U/L (10-37)
[2020-12-31] MEDS: potassium Cl 40MEQ/250ML bag 270 ML IV PRN (05:17)
--- NOTE | 2020-12-31 06:37 | NUR ---
Problems reprioritized. Patient report given, questions answered & plan of care reviewed with JAY Perez.
[2020-12-31] MEDS ORDERED: pantoprazole 40mg Tablet.DR PO SCH (07:30)
[2020-12-31] MEDS: docusate sod 100mg capsule PO SCH ×2 (07:34→20:00)
[2020-12-31] MEDS: piperacillin/tazo 4.5gm/100ml 100 ML IV SCH ×2 (07:36→15:56)
[2020-12-31] MEDS: hydrocortisone sod succ/PF 100mg/2ml inj. IV SCH ×3 (07:36→20:16)
[2020-12-31] MEDS ORDERED: VANCOMYCIN LEVEL IV ONE (08:30)
[2020-12-31] MEDS: insulin Lispro (HumaLOG) vial - multi-dose SQ SCH ×3 (08:59→17:03)
[2020-12-31 10:04] LABS: ABG BASE EXCESS -10.4 mmol/L (-2.0-2.0); ABG HCO3 18.1 mmol/L (22.0-26.0); ABG OXYGEN SATURATION 87.3 % (94-97); ABG PCO2 (T) 51.5 mmHg (35.0-48.0); ABG PO2 (T) 58.8 mmHg (75.0-100.0); ALLEN'S TEST POSITIVE; FCOHb 0.3 % (0.0-3.9); FMetHb 0.4 % (0.0-1.5); FO2Hb 86.7 % (94-97); PATIENT TEMPERATURE 37.3; PEEP 12 cm H2O; RESPIRATORY RATE 24 b/min; TIDAL VOLUME 450 mL; TOTAL HEMOGLOBIN 13.1 G/dl (14.0-18.0)
[2020-12-31 10:44] LABS: WHITE BLOOD COUNT 0.6 X10'3 (4.5-11.0)
--- NOTE | 2020-12-31 11:00 | NUR ---
Dr. Dudely aware of blown right pupil. Orders for CT of the head with no contrast. Upon return from CT, patient's left pupil dilated and appears blown. aware. Dr. Dudley aware of CT results and would like to try an apnea test. Respiratory therapy notified.
--- NOTE | 2020-12-31 11:02 | NUR ---
Reassessment: Pt receiving TF at goal of Vital AF at 75ml/hr and tolerating well. Per RN, pt w/ rectal tube d/t frequent liquid stools. No changes to nutrition intervention at this time, will continue to monitor. Recs: 1) Continuous TF using Vital AF at 75ml/hr goal to provide 1800ml volume, 2160kcals, 135g protein, 1458ml free water 2) Additional water flush 200ml Q4H 3) PALB QM/Th; daily wts 4) Routine bowel care 5) Monitor TF tolerance Addendum: 12/31/20 at [address] Amended: Links added.
[2020-12-31] MEDS: famotidine/PF 10 mg/ml inj IV SCH ×2 (11:25→20:16)
[2020-12-31 12:13] LABS: ABG BASE EXCESS -9.2 mmol/L (-2.0-2.0); ABG HCO3 19.6 mmol/L (22.0-26.0); ABG OXYGEN SATURATION 93.7 % (94-97); ABG PCO2 (T) 54.4 mmHg (35.0-48.0); ABG PO2 (T) 73.8 mmHg (75.0-100.0); ALLEN'S TEST POSITIVE; FMetHb 0.3 % (0.0-1.5); FO2Hb 93.4 % (94-97); PATIENT TEMPERATURE 36.9; PEEP 10 cm H2O; RESPIRATORY RATE 24 b/min; TIDAL VOLUME 450 mL; TOTAL HEMOGLOBIN 13.4 G/dl (14.0-18.0)
[2020-12-31 13:00] LABS: ABG BASE EXCESS -9.1 mmol/L (-2.0-2.0); ABG HCO3 17.3 mmol/L (22.0-26.0); ABG OXYGEN SATURATION 90.5 % (94-97); ABG PCO2 (T) 39.3 mmHg (35.0-48.0); ABG PO2 (T) 58.2 mmHg (75.0-100.0); ALLEN'S TEST POSITIVE; FCOHb 0.3 % (0.0-3.9); FMetHb 0.2 % (0.0-1.5); PEEP 5 cm H2O; RESPIRATORY RATE 30 b/min; TIDAL VOLUME 500 mL; TOTAL HEMOGLOBIN 13.3 G/dl (14.0-18.0)
[2020-12-31 15:35] LABS: ALBUMIN 1.5 G/DL (3.4-5.0); ANION GAP 12 (8-16); BLOOD UREA NITROGEN 20 MG/DL (7-18); BUN/CREATININE RATIO 16.3 (5.4-32.0); CALCIUM 6.8 MG/DL (8.5-10.1); CHLORIDE 104 MMOL/L (99-107); CREATININE 1.23 MG/DL (0.60-1.10); GLUCOSE 96 MG/DL (70-104); POTASSIUM 4.1 MMOL/L (3.5-5.1); SODIUM 138 MMOL/L (135-145); TOTAL CARBON DIOXIDE 21.9 MMOL/L (24-32); eGFR 67 ML/MIN
--- NOTE | 2020-12-31 16:00 | NUR ---
Dowel Pin Man at bedside to obtain fingerprints. Reports the results probably won't be back until next week.
[2020-12-31 16:14] LABS: ABG BASE EXCESS -7.1 mmol/L (-2.0-2.0); ABG HCO3 18.9 mmol/L (22.0-26.0); ABG PCO2 (T) 39.3 mmHg (35.0-48.0); ABG PO2 (T) 67.6 mmHg (75.0-100.0); ALLEN'S TEST POSITIVE; FMetHb 0.3 % (0.0-1.5); FO2Hb 93.7 % (94-97); PATIENT TEMPERATURE 36.7; PEEP 5 cm H2O; RESPIRATORY RATE 30 b/min; TIDAL VOLUME 500 mL; TOTAL HEMOGLOBIN 13.2 G/dl (14.0-18.0)
--- NOTE | 2020-12-31 18:22 | NUR ---
Problems reprioritized. Patient report given, questions answered & plan of care reviewed with Ivis THOMPSON.
--- NOTE | 2020-12-31 18:30 | NUR ---
Patient in room ICU 2039. I have received report from JAY Perez and had the opportunity to ask questions and assume patient care.
[2020-12-31] MEDS: sennosides/docusate sodium tablet PO SCH (20:07)
[2020-12-31 20:46] LABS: ABG HCO3 19.8 mmol/L (22.0-26.0); ABG OXYGEN SATURATION 98.6 % (94-97); ABG PCO2 (T) 32.3 mmHg (35.0-48.0); ABG PO2 (T) 122.4 mmHg (75.0-100.0); ALLEN'S TEST POSITIVE; FCOHb 0.3 % (0.0-3.9); FMetHb 0.3 % (0.0-1.5); PATIENT TEMPERATURE 36.7; PEEP 5 cm H2O; RESPIRATORY RATE 30 b/min; TIDAL VOLUME 500 mL; TOTAL HEMOGLOBIN 12.8 G/dl (14.0-18.0)
[2021-01-01] VITALS (23 sets, daily range): BP systolic 90–176; BP diastolic 45–140
[2021-01-01] MEDS: mineral oil/petrolatum ophthal oint EACHEYE SCH ×6 (00:02→20:11)
[2021-01-01] MEDS: piperacillin/tazo 4.5gm/100ml 100 ML IV SCH ×3 (00:02→16:51)
[2021-01-01] MEDS: vancomycin/NS 1 GM ADD-VANTAGE 250 ML IV SCH ×3 (00:43→16:51)
[2021-01-01] MEDS: NORepinephrine 32 MG in Normal Saline 250ml IV soln IV SCH (00:44)
[2021-01-01 02:20] LABS: ABG BASE EXCESS -2.1 mmol/L (-2.0-2.0); ABG HCO3 21.1 mmol/L (22.0-26.0); ABG OXYGEN SATURATION 99.2 % (94-97); ABG PO2 (T) 194.9 mmHg (75.0-100.0); ALLEN'S TEST POSITIVE; FCOHb 0.3 % (0.0-3.9); FMetHb 0.3 % (0.0-1.5); FO2Hb 98.6 % (94-97); PATIENT TEMPERATURE 36.8; PEEP 5 cm H2O; RESPIRATORY RATE 30 b/min; TIDAL VOLUME 500 mL; TOTAL HEMOGLOBIN 12.3 G/dl (14.0-18.0)
[2021-01-01] MEDS: hydrocortisone sod succ/PF 100mg/2ml inj. IV SCH ×4 (02:27→20:11)
[2021-01-01] MEDS: dextrose 5%-water 1,000 ML IV SCH ×3 (02:28→12:05)
[2021-01-01 03:07] LABS: BASOPHILS % (AUTO) 0.1 % (0-1); EOSINOPHILS % (AUTO) 0.2 % (0-6); HEMATOCRIT 33.3 % (42.0-52.0); HEMOGLOBIN 11.5 g/dl (14.0-17.9); LYMPHOCYTES # (AUTO) 0.1 X10'3 (1.1-4.8); LYMPHOCYTES % (AUTO) 0.9 % (21-51); MEAN CORPUSCULAR HEMOGLOBIN 34.6 PG (27.0-31.0); MEAN CORPUSCULAR HGB CONC 34.5 g/dL (33.0-36.5); MEAN CORPUSCULAR VOLUME 100.2 FL (78-98); MEAN PLATELET VOLUME 8.4 FL (7.4-10.4); MONOCYTES # (AUTO) 0.1 X10'3 (0-0.9); MONOCYTES % (AUTO) 1.3 % (2-12); NEUTROPHILS # (AUTO) 9.9 X10'3 (1.8-7.7); NEUTROPHILS % (AUTO) 97.5 % (42-75); PLATELET COUNT 60 X10'3 (140-440); RED BLOOD COUNT 3.32 X10'6 (4.70-6.10); RED CELL DISTRIBUTION WIDTH 15.5 % (11.5-14.5); WHITE BLOOD COUNT 10.2 X10'3 (4.5-11.0)
[2021-01-01 03:15] LABS: ALANINE AMINOTRANSFERASE 355 U/L (12-78); ALBUMIN 1.4 G/DL (3.4-5.0); ALBUMIN/GLOBULIN RATIO 0.4 (1.1-1.5); ALKALINE PHOSPHATASE 118 IU/L (46-116); ANION GAP 9 (8-16); ASPARTATE AMINO TRANSFERASE 421 U/L (10-37); BILIRUBIN,TOTAL 0.4 MG/DL (0.1-1.0); BLOOD UREA NITROGEN 18 MG/DL (7-18); BUN/CREATININE RATIO 14.2 (5.4-32.0); CALCIUM 7.4 MG/DL (8.5-10.1); CHLORIDE 111 MMOL/L (99-107); CREATININE 1.27 MG/DL (0.60-1.10); GLUCOSE 155 MG/DL (70-104); MAGNESIUM 2.1 MG/DL (1.5-2.4); PARTIAL THROMBOPLASTIN TIME 36 SECONDS (22-32); PHOSPHORUS 2.3 MG/DL (2.3-4.5); POTASSIUM 3.3 MMOL/L (3.5-5.1); SODIUM 144 MMOL/L (135-145); TOTAL CARBON DIOXIDE 24.4 MMOL/L (24-32); TOTAL PROTEIN 5.1 G/DL (6.4-8.2); eGFR 65 ML/MIN
[2021-01-01 04:22] LABS: ANISOCYTOSIS FEW; PLATELET ESTIMATE DECREASED; TOTAL CELLS COUNTED 100
[2021-01-01 04:23] LABS: LARGE PLATELETS FEW
--- NOTE | 2021-01-01 06:14 | NUR ---
Problems reprioritized. Patient report given, questions answered & plan of care reviewed with JAY Gallagher.
[2021-01-01] MEDS: famotidine/PF 10 mg/ml inj IV SCH ×2 (07:51→20:11)
[2021-01-01] MEDS: docusate sod 100mg capsule PO SCH ×3 (07:54→20:12)
[2021-01-01] MEDS ORDERED: glucagon, human recombinant 1mg kit SUBCUT PRN (08:40)
[2021-01-01] MEDS ORDERED: dextrose 50%-water 50ml dispensing syringe IV PRN ×2 (08:40)
[2021-01-01] MEDS ORDERED: dextrose ORAL solution 15 GM/59 ML bottle PO PRN ×2 (08:40)
[2021-01-01] MEDS: insulin Lispro (HumaLOG) vial - multi-dose SQ SCH ×2 (08:43→13:00)
[2021-01-01] MEDS: potassium Cl 40MEQ/250ML bag 270 ML IV PRN (09:46)
[2021-01-01] MEDS: vasopressin inj. 40 UNIT in dextrose 5%-water 50ml 38 ML IV SCH (15:50)
--- NOTE | 2021-01-01 17:20 | NUR ---
Patient identified and efforts made to contact next of kin. RN spoke with 1/2 sister Meri who stated she has not had contact with patient for approximately 15 years and continue to try and contact Father whose name is Lane Calle and mother, named Nata or Lissette.
[2021-01-01] MEDS: sennosides/docusate sodium tablet PO SCH ×2 (20:12→20:14)
[2021-01-01] MEDS: lactobacillus rhamnosus 10,000 MMU CELLS/CAPSULE PO SCH (20:12)
[2021-01-01] MEDS: insulin glargine (Lantus) pen - multi-dose SQ SCH (21:00)
[2021-01-01] MEDS: insulin regular, human U-100 3ml vial - multi-dose SQ SCH (21:08)
[2021-01-02] VITALS (23 sets, daily range): BP systolic 95–166; BP diastolic 48–108
[2021-01-02] MEDS: mineral oil/petrolatum ophthal oint EACHEYE SCH ×6 (00:42→20:00)
[2021-01-02] MEDS: piperacillin/tazo 4.5gm/100ml 100 ML IV SCH ×2 (00:44→08:40)
[2021-01-02] MEDS: vancomycin/NS 1 GM ADD-VANTAGE 250 ML IV SCH ×2 (01:33→08:40)
[2021-01-02] MEDS: NORepinephrine 32 MG in Normal Saline 250ml IV soln IV SCH ×2 (01:33→22:08)
[2021-01-02] MEDS: hydrocortisone sod succ/PF 100mg/2ml inj. IV SCH ×4 (01:34→20:00)
[2021-01-02] MEDS: insulin regular, human U-100 3ml vial - multi-dose SQ SCH ×2 (02:21→22:07)
[2021-01-02 02:58] LABS: ALBUMIN 1.2 G/DL (3.4-5.0); ANION GAP 10 (8-16); BLOOD UREA NITROGEN 29 MG/DL (7-18); BUN/CREATININE RATIO 27.6 (5.4-32.0); CALCIUM 7.4 MG/DL (8.5-10.1); CHLORIDE 106 MMOL/L (99-107); CREATININE 1.05 MG/DL (0.60-1.10); GLUCOSE 133 MG/DL (70-104); SODIUM 142 MMOL/L (135-145); TOTAL CARBON DIOXIDE 25.7 MMOL/L (24-32); eGFR 83 ML/MIN
[2021-01-02 02:59] LABS: ABG BASE EXCESS -1.3 mmol/L (-2.0-2.0); ABG HCO3 22.6 mmol/L (22.0-26.0); ABG OXYGEN SATURATION 99.4 % (94-97); ABG PCO2 (T) 33.6 mmHg (35.0-48.0); ABG PO2 (T) 265.3 mmHg (75.0-100.0); ALLEN'S TEST POSITIVE; FCOHb 0.3 % (0.0-3.9); FMetHb 0.2 % (0.0-1.5); FO2Hb 98.9 % (94-97); PATIENT TEMPERATURE 36.2; RESPIRATORY RATE 24 b/min; TIDAL VOLUME 500 mL; TOTAL HEMOGLOBIN 10.9 G/dl (14.0-18.0)
[2021-01-02 03:01] LABS: POTASSIUM 2.7 MMOL/L (3.5-5.1)
[2021-01-02 07:36] LABS: BASOPHILS % (AUTO) 0.1 % (0-1); EOSINOPHILS % (AUTO) 0 % (0-6); HEMATOCRIT 30.7 % (42.0-52.0); HEMOGLOBIN 10.5 g/dl (14.0-17.9); LYMPHOCYTES # (AUTO) 0.3 X10'3 (1.1-4.8); LYMPHOCYTES % (AUTO) 1.3 % (21-51); MEAN CORPUSCULAR HEMOGLOBIN 34.4 PG (27.0-31.0); MEAN CORPUSCULAR HGB CONC 34.1 g/dL (33.0-36.5); MEAN CORPUSCULAR VOLUME 100.8 FL (78-98); MONOCYTES # (AUTO) 1.1 X10'3 (0-0.9); MONOCYTES % (AUTO) 5.2 % (2-12); NEUTROPHILS # (AUTO) 20.4 X10'3 (1.8-7.7); NEUTROPHILS % (AUTO) 93.4 % (42-75); RED BLOOD COUNT 3.04 X10'6 (4.70-6.10); RED CELL DISTRIBUTION WIDTH 16.3 % (11.5-14.5); WHITE BLOOD COUNT 21.9 X10'3 (4.5-11.0)
[2021-01-02 07:51] LABS: PLATELET COUNT 39 X10'3 (140-440)
[2021-01-02] MEDS: docusate sod 100mg capsule PO SCH ×2 (08:00→20:00)
[2021-01-02] MEDS: lactobacillus rhamnosus 10,000 MMU CELLS/CAPSULE PO SCH ×2 (08:38→20:00)
[2021-01-02] MEDS: famotidine/PF 10 mg/ml inj IV SCH ×2 (08:38→20:00)
[2021-01-02 08:57] LABS: MAGNESIUM 2.1 MG/DL (1.5-2.4); PHOSPHORUS 1.4 MG/DL (2.3-4.5)
[2021-01-02] MEDS: levoFLOXACIN-Levaquin 750MG/D5 150 ML IV SCH (11:34)
[2021-01-02 13:04] LABS: ALANINE AMINOTRANSFERASE 207 U/L (12-78); ALBUMIN 1.2 G/DL (3.4-5.0); ALBUMIN/GLOBULIN RATIO 0.3 (1.1-1.5); ALKALINE PHOSPHATASE 187 IU/L (46-116); ANION GAP 8 (8-16); ASPARTATE AMINO TRANSFERASE 137 U/L (10-37); BILIRUBIN,TOTAL 0.3 MG/DL (0.1-1.0); BLOOD UREA NITROGEN 30 MG/DL (7-18); BUN/CREATININE RATIO 28.8 (5.4-32.0); CALCIUM 7.8 MG/DL (8.5-10.1); CHLORIDE 108 MMOL/L (99-107); CREATININE 1.04 MG/DL (0.60-1.10); GLUCOSE 137 MG/DL (70-104); POTASSIUM 3.1 MMOL/L (3.5-5.1); SODIUM 144 MMOL/L (135-145); TOTAL CARBON DIOXIDE 28.3 MMOL/L (24-32); TOTAL PROTEIN 5.4 G/DL (6.4-8.2); eGFR 84 ML/MIN
[2021-01-02 14:09] LABS: ABG BASE EXCESS -0.8 mmol/L (-2.0-2.0); ABG HCO3 26.1 mmol/L (22.0-26.0); ABG OXYGEN SATURATION 84.4 % (94-97); ABG PCO2 (T) 54.7 mmHg (35.0-48.0); ALLEN'S TEST POSITIVE; FCOHb 0.3 % (0.0-3.9); FMetHb 0.2 % (0.0-1.5); PEEP 5 cm H2O; RESPIRATORY RATE 24 b/min; TIDAL VOLUME 450 mL; TOTAL HEMOGLOBIN 10.2 G/dl (14.0-18.0)
[2021-01-02 15:25] LABS: ABG BASE EXCESS -2.3 mmol/L (-2.0-2.0); ABG HCO3 22.5 mmol/L (22.0-26.0); ABG OXYGEN SATURATION 84.1 % (94-97); ABG PCO2 (T) 38.9 mmHg (35.0-48.0); ABG PO2 (T) 46.2 mmHg (75.0-100.0); ALLEN'S TEST POSITIVE; FCOHb 0.3 % (0.0-3.9); FMetHb 0.2 % (0.0-1.5); FO2Hb 83.7 % (94-97); PEEP 5 cm H2O; RESPIRATORY RATE 30 b/min; TIDAL VOLUME 475 mL; TOTAL HEMOGLOBIN 11.6 G/dl (14.0-18.0)
[2021-01-02 15:55] LABS: ABG HCO3 28.9 mmol/L (22.0-26.0); ABG OXYGEN SATURATION 27.3 % (94-97); ABG PCO2 (T) 57.1 mmHg (35.0-48.0); ABG PO2 (T) < 28.0 mmHg (75.0-100.0); ALLEN'S TEST Modified; FCOHb 0.1 % (0.0-3.9); FLOW 12 L/min; FMetHb 0.8 % (0.0-1.5); FO2Hb 27.1 % (94-97); PATIENT TEMPERATURE 37.2; TOTAL HEMOGLOBIN 11.1 G/dl (14.0-18.0)
[2021-01-02] MEDS: insulin glargine (Lantus) pen - multi-dose SQ SCH (21:00)
[2021-01-02] MEDS: sennosides/docusate sodium tablet PO SCH (21:56)
[2021-01-02] MEDS: vasopressin inj. 40 UNIT in dextrose 5%-water 50ml 38 ML IV SCH (22:09)
[2021-01-03] VITALS (24 sets, daily range): BP systolic 93–144; BP diastolic 43–88
[2021-01-03] MEDS: hydrocortisone sod succ/PF 100mg/2ml inj. IV SCH ×4 (01:15→20:29)
[2021-01-03] MEDS: ibuprofen tablet 400 MG TABLET PO PRN (01:17)
--- NOTE | 2021-01-03 02:00 | NUR ---
Spoke with Acacia from [facility], updates given.
[2021-01-03 02:46] LABS: ALBUMIN 1.2 G/DL (3.4-5.0); ANION GAP 10 (8-16); BLOOD UREA NITROGEN 33 MG/DL (7-18); BUN/CREATININE RATIO 30.6 (5.4-32.0); CHLORIDE 107 MMOL/L (99-107); CREATININE 1.08 MG/DL (0.60-1.10); GLUCOSE 151 MG/DL (70-104); POTASSIUM 3.2 MMOL/L (3.5-5.1); SODIUM 143 MMOL/L (135-145); TOTAL CARBON DIOXIDE 26.5 MMOL/L (24-32); eGFR 80 ML/MIN
[2021-01-03] MEDS: insulin regular, human U-100 3ml vial - multi-dose SQ SCH ×4 (03:15→20:42)
[2021-01-03] MEDS: mineral oil/petrolatum ophthal oint EACHEYE SCH ×6 (04:00→20:17)
[2021-01-03] MEDS: lactobacillus rhamnosus 10,000 MMU CELLS/CAPSULE PO SCH ×2 (07:33→20:29)
[2021-01-03] MEDS: famotidine/PF 10 mg/ml inj IV SCH ×2 (07:33→20:29)
[2021-01-03] MEDS: levoFLOXACIN-Levaquin 750MG/D5 150 ML IV SCH (07:33)
[2021-01-03] MEDS: docusate sod 100mg capsule PO SCH ×2 (07:33→20:00)
[2021-01-03] MEDS: potassium Cl 40MEQ/250ML bag 270 ML IV PRN ×2 (08:47→16:39)
[2021-01-03 10:51] LABS: ABG BASE EXCESS 1.1 mmol/L (-2.0-2.0); ABG HCO3 24.9 mmol/L (22.0-26.0); ABG OXYGEN SATURATION 96.3 % (94-97); ABG PCO2 (T) 36.7 mmHg (35.0-48.0); ABG PO2 (T) 78.6 mmHg (75.0-100.0); ALLEN'S TEST POSITIVE; FCOHb 0.3 % (0.0-3.9); FMetHb 0.2 % (0.0-1.5); FO2Hb 95.8 % (94-97); PATIENT TEMPERATURE 37.1; RESPIRATORY RATE 30 b/min; TIDAL VOLUME 475 mL; TOTAL HEMOGLOBIN 9.5 G/dl (14.0-18.0)
[2021-01-03] MEDS: NORepinephrine 8mg/ 250ml NS 250 ML IV SCH (14:07)
[2021-01-03 16:03] LABS: ALBUMIN 1.2 G/DL (3.4-5.0); ANION GAP 10 (8-16); BLOOD UREA NITROGEN 36 MG/DL (7-18); BUN/CREATININE RATIO 34.3 (5.4-32.0); CALCIUM 7.8 MG/DL (8.5-10.1); CHLORIDE 114 MMOL/L (99-107); CREATININE 1.05 MG/DL (0.60-1.10); GLUCOSE 115 MG/DL (70-104); POTASSIUM 3.2 MMOL/L (3.5-5.1); SODIUM 151 MMOL/L (135-145); TOTAL CARBON DIOXIDE 27.4 MMOL/L (24-32); eGFR 83 ML/MIN
[2021-01-03] MEDS ORDERED: desmopressin 0.1mg/ml nasal spray 5ml btl NS ONE (16:10)
[2021-01-03] MEDS: vasopressin inj. 40 UNIT in dextrose 5%-water 50ml 38 ML IV SCH (16:36)
--- NOTE | 2021-01-03 16:42 | NUR ---
1200- Repeat EEG shows increased diffuse slowing. 1300- patient beginning to diurese, 1430- urine output increasing, specific gravity performed between 1.00 and 1.03, reported to MD, draw stat CMP 1530- art line placed right groin, in anticipation of donation. ddavp ordered. 1630- added vasopressin for bp and antidiuretic aspect.
[2021-01-03] MEDS: desmopressin 0.1mg/ml nasal spray 5ml btl NS SCH ×2 (16:46→20:30)
[2021-01-03] MEDS: sennosides/docusate sodium tablet PO SCH (20:18)
[2021-01-03] MEDS: insulin glargine (Lantus) pen - multi-dose SQ SCH (20:53)
[2021-01-03 21:19] LABS: ALBUMIN 1.3 G/DL (3.4-5.0); ANION GAP 11 (8-16); BLOOD UREA NITROGEN 40 MG/DL (7-18); CALCIUM 8.3 MG/DL (8.5-10.1); CHLORIDE 115 MMOL/L (99-107); CREATININE 1.08 MG/DL (0.60-1.10); GLUCOSE 158 MG/DL (70-104); POTASSIUM 3.4 MMOL/L (3.5-5.1); SODIUM 151 MMOL/L (135-145); TOTAL CARBON DIOXIDE 25.4 MMOL/L (24-32); eGFR 80 ML/MIN
[2021-01-04] VITALS (22 sets, daily range): BP systolic 96–172; BP diastolic 60–106
[2021-01-04] MEDS: mineral oil/petrolatum ophthal oint EACHEYE SCH ×4 (00:19→12:39)
[2021-01-04] MEDS: vasopressin inj. 40 UNIT in dextrose 5%-water 50ml 38 ML IV SCH (00:51)
[2021-01-04] MEDS: potassium Cl 40MEQ/250ML bag 270 ML IV PRN (01:47)
[2021-01-04] MEDS: hydrocortisone sod succ/PF 100mg/2ml inj. IV SCH ×3 (02:35→14:52)
[2021-01-04] MEDS: insulin regular, human U-100 3ml vial - multi-dose SQ SCH ×2 (02:39→07:43)
[2021-01-04] MEDS: NORepinephrine 8mg/ 250ml NS 250 ML IV SCH (04:13)
[2021-01-04] MEDS: lactobacillus rhamnosus 10,000 MMU CELLS/CAPSULE PO SCH (07:36)
[2021-01-04] MEDS: famotidine/PF 10 mg/ml inj IV SCH (07:37)
[2021-01-04] MEDS: levoFLOXACIN-Levaquin 750MG/D5 150 ML IV SCH (07:37)
[2021-01-04] MEDS: desmopressin 0.1mg/ml nasal spray 5ml btl NS SCH ×3 (07:37→12:39)
[2021-01-04] MEDS: docusate sod 100mg capsule PO SCH (07:37)
--- NOTE | 2021-01-04 11:16 | NUR ---
Reassessment: Pt remains intubated and receiving TF at goal of Vital AF at 75ml/hr and tolerating well. Per RN, pt w/ rectal tube d/t frequent liquid stools. No changes to nutrition intervention at this time, will continue to monitor. Recs: 1) Continuous TF using Vital AF at 75ml/hr goal to provide 1800ml volume, 2160kcals, 135g protein, 1458ml free water 2) Additional water flush 200ml Q4H 3) PALB QM/Th; daily wts 4) Routine bowel care 5) Monitor TF tolerance Addendum: 01/04/21 at [address] Amended: Links added.
[2021-01-04] MEDS ORDERED: iohexol 300mg/ml 100ml inj. ONE (11:25)
--- NOTE | 2021-01-04 13:09 | NUR ---
1000- critical care rounds, plan is for NM scan of head around 11, CT of chest abdomen pelvis for donor evaluation. use levophed for BP not vasopressin, continue DDAVP for DI. 11-12:30- off unit to NM and then CT 1230- Back to room. BP more labile. titrating levo from 0.01- to 0.06mcg/kg/min
--- NOTE | 2021-01-04 15:46 | NUR ---
1430 BGL 136- held insulin as patient will be NPO soon and donor network will initiate new meds.
--- NOTE | 2021-01-04 15:55 | NUR ---
1600- brain determined at 14:58, patient to be discharged and readmitted under donor MD / donor network patient.
[2021-01-04] MEDS ORDERED: WATER IV SCH ×2 (17:00→17:32)
[2021-01-04] MEDS ORDERED: DEXTROSE 5% IV SCH ×2 (17:00→17:32)
[2021-01-04] MEDS ORDERED: dextrose 5%-1/4 normal saline 1,000 ML IV SCH (17:00)
[2021-01-04] MEDS ORDERED: METHYLPREDNISOLONE SOD SUCC IV SCH ×2 (17:00→17:32)
[2021-01-04] MEDS ORDERED: MAGNESIUM 2 GRAM IN 50ML NS IV PRN (17:05)
[2021-01-04] MEDS ORDERED: calcium chloride inj. 1,000 MG in normal saline 100ml BAG IV PRN (17:05)
[2021-01-04] MEDS ORDERED: MAGNESIUM 4 GRAM IN 100ML NS IV PRN (17:05)
[2021-01-04] MEDS ORDERED: NORMAL SALINE IV PRN (17:15)
[2021-01-04] MEDS ORDERED: POTASSIUM PHOSPHATE IV PRN (17:15)
[2021-01-04] MEDS ORDERED: potassium phosphate inj 15 MMOL in NS 250ml IV soln 250 ML IV PRN (17:15)
[2021-01-04] MEDS ORDERED: POTASSIUM PHOSHATE inj. 30 MMOL in NORMAL SALINE 500ml IV.SOLN IV PRN (17:15)
[2021-01-04 18:32] LABS: BASOPHILS % (AUTO) 0.1 % (0-1); EOSINOPHILS % (AUTO) 0.1 % (0-6); HEMATOCRIT 23.8 % (42.0-52.0); HEMOGLOBIN 8.2 g/dl (14.0-17.9); LYMPHOCYTES # (AUTO) 0.4 X10'3 (1.1-4.8); LYMPHOCYTES % (AUTO) 1.6 % (21-51); MEAN CORPUSCULAR HEMOGLOBIN 34.2 PG (27.0-31.0); MEAN CORPUSCULAR HGB CONC 34.4 g/dL (33.0-36.5); MEAN CORPUSCULAR VOLUME 99.4 FL (78-98); MEAN PLATELET VOLUME 10.4 FL (7.4-10.4); MONOCYTES # (AUTO) 1.5 X10'3 (0-0.9); MONOCYTES % (AUTO) 5.9 % (2-12); NEUTROPHILS % (AUTO) 92.3 % (42-75); PLATELET COUNT 69 X10'3 (140-440); RED BLOOD COUNT 2.39 X10'6 (4.70-6.10); RED CELL DISTRIBUTION WIDTH 16.4 % (11.5-14.5); WHITE BLOOD COUNT 24.8 X10'3 (4.5-11.0)
[2021-01-04] MEDS: DEXTROSE 5% IV SCH (18:44)
[2021-01-04] MEDS: WATER IV SCH (18:44)
[2021-01-04] MEDS: METHYLPREDNISOLONE SOD SUCC IV SCH (18:44)
[2021-01-04 18:45] LABS: ALANINE AMINOTRANSFERASE 233 U/L (12-78); ALBUMIN 1.2 G/DL (3.4-5.0); ALBUMIN/GLOBULIN RATIO 0.3 (1.1-1.5); ALKALINE PHOSPHATASE 284 IU/L (46-116); ANION GAP 10 (8-16); ASPARTATE AMINO TRANSFERASE 410 U/L (10-37); BILIRUBIN,TOTAL 0.3 MG/DL (0.1-1.0); BLOOD UREA NITROGEN 39 MG/DL (7-18); BUN/CREATININE RATIO 44.8 (5.4-32.0); CALCIUM 8.2 MG/DL (8.5-10.1); CHLORIDE 115 MMOL/L (99-107); CREATININE 0.87 MG/DL (0.60-1.10); GLUCOSE 144 MG/DL (70-104); POTASSIUM 3.1 MMOL/L (3.5-5.1); SODIUM 152 MMOL/L (135-145); TOTAL CARBON DIOXIDE 26.6 MMOL/L (24-32); TOTAL PROTEIN 5.2 G/DL (6.4-8.2); eGFR > 90 ML/MIN
[2021-01-04] MEDS: potassium CL 20mEq in D5-1/2NS 1,000 ML IV SCH (18:54)
[2021-01-04] MEDS: levoTHYROXINE sod inj. 200 MCG in normal saline 500ml IV soln 490 ML IV SCH (18:54)
[2021-01-04] MEDS: polyvinyl alcohol ophthalmic drops 15ml bottle EACHEYE SCH ×4 (18:54→23:41)
[2021-01-04 18:57] LABS: BILIRUBIN,DIRECT 0.1 MG/DL (0-0.3); CREATINE KINASE 40 U/L (39-308)
[2021-01-04] MEDS: pantoprazole 40 MG vial IV SCH (18:57)
[2021-01-04] MEDS: piperacillin/tazo 3.375gm/50ml 50 ML IV SCH (18:58)
[2021-01-04 19:07] LABS: PARTIAL THROMBOPLASTIN TIME 23 SECONDS (22-32)
[2021-01-04 19:08] LABS: CLARITY,URINE CLEAR (Clear); COLOR,URINE YELLOW (Yellow); UA COLLECTION TYPE FOLEY CATH
[2021-01-04 19:09] LABS: GLUCOSE, URINE NEGATIVE (Neg); KETONES,URINE NEGATIVE (Neg); LEUKOCYTE ESTERASE ,URINE NEGATIVE (Neg); NITRITES, URINE NEGATIVE (Neg); OCCULT BLOOD,URINE NEGATIVE (Neg); PROTEIN,URINE TRACE mg/dl (Neg); UROBILINOGEN,URINE 0.2 E.U/dL (0.2-1.0)
[2021-01-04 19:10] LABS: BACTERIA,URINE FEW /HPF (Neg); CELLULAR CAST 0-4 /LPF (NEGATIVE); MUCUS STRANDS FEW /LPF (Neg); SQUAMOUS EPITHELIAL CELL,UR FEW /LPF (FEW)
[2021-01-04 19:11] LABS: RBC,URINE 0-2 /HPF (0-2); TRANSITIONAL EPI CELLS,URINE FEW /HPF; WBC,URINE 0-4 /HPF (0-4)
[2021-01-04 19:19] LABS: ABG BASE EXCESS 2.7 mmol/L (-2.0-2.0); ABG HCO3 25.7 mmol/L (22.0-26.0); ABG OXYGEN SATURATION 97.3 % (94-97); ABG PO2 (T) 92.3 mmHg (75.0-100.0); FCOHb 0.3 % (0.0-3.9); FMetHb 0.3 % (0.0-1.5); FO2Hb 96.7 % (94-97); PATIENT TEMPERATURE 36.7; PEEP 10 cm H2O; RESPIRATORY RATE 30 b/min; TIDAL VOLUME 475 mL; TOTAL HEMOGLOBIN 9.1 G/dl (14.0-18.0)
[2021-01-04] MEDS: albuterol 2.5 MG/3 ML nebule NEB SCH (19:20)
[2021-01-04 19:27] LABS: AMYLASE 113 U/L (25-115); LIPASE 215 U/L (73-393)
[2021-01-04 19:31] LABS: HEMOGLOBIN A1C 5.1 % (4.5-6.2)
[2021-01-04] MEDS ORDERED: famotidine/PF 10 mg/ml inj IV SCH (20:00)
[2021-01-04 20:42] LABS: ANISOCYTOSIS 1+; LARGE PLATELETS FEW; PLATELET ESTIMATE DECREASED; TOTAL CELLS COUNTED 100
[2021-01-04] MEDS: potassium Cl 20mEq/100mL bag 100 ML IV PRN ×2 (21:09→22:11)
[2021-01-04 22:00] LABS: ABG BASE EXCESS 0.9 mmol/L (-2.0-2.0); ABG HCO3 25.2 mmol/L (22.0-26.0); ABG OXYGEN SATURATION 95.1 % (94-97); ABG PCO2 (T) 37.9 mmHg (35.0-48.0); ABG PO2 (T) 74.2 mmHg (75.0-100.0); FCOHb 0.3 % (0.0-3.9); FMetHb 0.3 % (0.0-1.5); FO2Hb 94.5 % (94-97); PATIENT TEMPERATURE 36.5; PEEP 10 cm H2O; RESPIRATORY RATE 20 b/min; TIDAL VOLUME 550 mL
[2021-01-04] MEDS: INSULIN REGULAR, HUMAN 100 UNITS in NORMAL SALINE 100ml IV SCH (22:20)
[2021-01-04] MEDS: albumin (human) 25% 100 ML IV solution IV SCH (23:50)
[2021-01-05] VITALS (31 sets, daily range): BP systolic 119–171; BP diastolic 75–101
[2021-01-05 00:54] LABS: BASOPHILS % (AUTO) 0.1 % (0-1); EOSINOPHILS % (AUTO) 0 % (0-6); HEMATOCRIT 23.5 % (42.0-52.0); LYMPHOCYTES # (AUTO) 0.4 X10'3 (1.1-4.8); LYMPHOCYTES % (AUTO) 1.7 % (21-51); MEAN CORPUSCULAR HGB CONC 34.1 g/dL (33.0-36.5); MEAN PLATELET VOLUME 10.5 FL (7.4-10.4); MONOCYTES # (AUTO) 0.6 X10'3 (0-0.9); MONOCYTES % (AUTO) 2.8 % (2-12); NEUTROPHILS # (AUTO) 20.9 X10'3 (1.8-7.7); NEUTROPHILS % (AUTO) 95.4 % (42-75); PLATELET COUNT 74 X10'3 (140-440); RED BLOOD COUNT 2.35 X10'6 (4.70-6.10); RED CELL DISTRIBUTION WIDTH 16.6 % (11.5-14.5); WHITE BLOOD COUNT 21.9 X10'3 (4.5-11.0)
[2021-01-05] MEDS ORDERED: furosemide 40mg/4ml inj IV ONE ×2 (00:55→19:35)
[2021-01-05 01:08] LABS: ALANINE AMINOTRANSFERASE 258 U/L (12-78); ALBUMIN 1.3 G/DL (3.4-5.0); ALBUMIN/GLOBULIN RATIO 0.3 (1.1-1.5); ALKALINE PHOSPHATASE 282 IU/L (46-116); ANION GAP 9 (8-16); ASPARTATE AMINO TRANSFERASE 406 U/L (10-37); BILIRUBIN,TOTAL 0.4 MG/DL (0.1-1.0); BLOOD UREA NITROGEN 38 MG/DL (7-18); CHLORIDE 114 MMOL/L (99-107); GLUCOSE 188 MG/DL (70-104); POTASSIUM 3.7 MMOL/L (3.5-5.1); SODIUM 150 MMOL/L (135-145); TOTAL CARBON DIOXIDE 26.6 MMOL/L (24-32); TOTAL PROTEIN 5.3 G/DL (6.4-8.2); eGFR 88 ML/MIN
[2021-01-05] MEDS: polyvinyl alcohol ophthalmic drops 15ml bottle EACHEYE SCH ×12 (01:09→23:08)
[2021-01-05] MEDS: piperacillin/tazo 3.375gm/50ml 50 ML IV SCH ×3 (01:10→16:34)
[2021-01-05 01:11] LABS: PARTIAL THROMBOPLASTIN TIME 24 SECONDS (22-32)
[2021-01-05 01:19] LABS: BILIRUBIN,DIRECT 0.1 MG/DL (0-0.3); CREATINE KINASE 39 U/L (39-308); MAGNESIUM 2.3 MG/DL (1.5-2.4); PHOSPHORUS 3.3 MG/DL (2.3-4.5)
[2021-01-05] MEDS: albuterol 2.5 MG/3 ML nebule NEB SCH ×7 (03:05→23:35)
[2021-01-05 03:41] LABS: ABG BASE EXCESS 0.8 mmol/L (-2.0-2.0); ABG HCO3 25.4 mmol/L (22.0-26.0); ABG OXYGEN SATURATION 95.3 % (94-97); ABG PCO2 (T) 39.1 mmHg (35.0-48.0); FCOHb 0.3 % (0.0-3.9); PATIENT TEMPERATURE 36.4; PEEP 10 cm H2O; RESPIRATORY RATE 20 b/min; TIDAL VOLUME 550 mL; TOTAL HEMOGLOBIN 8.7 G/dl (14.0-18.0)
[2021-01-05] MEDS: Potassium Cl inj 20 MEQ in dextrose 5%-water 990 ML IV SCH ×2 (04:14→18:38)
[2021-01-05] MEDS: albumin (human) 25% 100 ML IV solution IV SCH ×3 (04:15→11:52)
[2021-01-05] MEDS: potassium CL 20mEq in D5-1/2NS 1,000 ML IV SCH (04:35)
[2021-01-05] MEDS ORDERED: furosemide 20 MG/2 ML vial IV ONE ×2 (04:45→14:15)
[2021-01-05 06:27] LABS: BASOPHILS # (AUTO) 0.1 X10'3 (0-0.2); BASOPHILS % (AUTO) 0.2 % (0-1); EOSINOPHILS % (AUTO) 0 % (0-6); HEMATOCRIT 22.4 % (42.0-52.0); HEMOGLOBIN 7.6 g/dl (14.0-17.9); LYMPHOCYTES # (AUTO) 0.5 X10'3 (1.1-4.8); LYMPHOCYTES % (AUTO) 2.3 % (21-51); MEAN CORPUSCULAR HEMOGLOBIN 34.1 PG (27.0-31.0); MEAN CORPUSCULAR HGB CONC 33.9 g/dL (33.0-36.5); MEAN CORPUSCULAR VOLUME 100.5 FL (78-98); MEAN PLATELET VOLUME 9.5 FL (7.4-10.4); MONOCYTES # (AUTO) 0.5 X10'3 (0-0.9); MONOCYTES % (AUTO) 2.4 % (2-12); NEUTROPHILS % (AUTO) 95.1 % (42-75); PLATELET COUNT 74 X10'3 (140-440); RED BLOOD COUNT 2.23 X10'6 (4.70-6.10); RED CELL DISTRIBUTION WIDTH 16.9 % (11.5-14.5)
[2021-01-05 06:35] LABS: PARTIAL THROMBOPLASTIN TIME 24 SECONDS (22-32)
[2021-01-05] MEDS: pantoprazole 40 MG vial IV SCH (08:22)
[2021-01-05 08:51] LABS: ALANINE AMINOTRANSFERASE 250 U/L (12-78); ALBUMIN 1.9 G/DL (3.4-5.0); ALBUMIN/GLOBULIN RATIO 0.5 (1.1-1.5); ALKALINE PHOSPHATASE 267 IU/L (46-116); ANION GAP 13 (8-16); ASPARTATE AMINO TRANSFERASE 355 U/L (10-37); BILIRUBIN,TOTAL 0.4 MG/DL (0.1-1.0); BLOOD UREA NITROGEN 35 MG/DL (7-18); BUN/CREATININE RATIO 35.4 (5.4-32.0); CALCIUM 8.1 MG/DL (8.5-10.1); CHLORIDE 113 MMOL/L (99-107); CREATININE 0.99 MG/DL (0.60-1.10); GLUCOSE 160 MG/DL (70-104); POTASSIUM 3.3 MMOL/L (3.5-5.1); SODIUM 152 MMOL/L (135-145); TOTAL CARBON DIOXIDE 26.4 MMOL/L (24-32); TOTAL PROTEIN 5.5 G/DL (6.4-8.2); eGFR 89 ML/MIN
[2021-01-05 09:03] LABS: BILIRUBIN,DIRECT 0.1 MG/DL (0-0.3); CREATINE KINASE 37 U/L (39-308); MAGNESIUM 2.3 MG/DL (1.5-2.4); PHOSPHORUS 3.3 MG/DL (2.3-4.5)
[2021-01-05 12:04] LABS: BASOPHILS % (AUTO) 0.2 % (0-1); EOSINOPHILS % (AUTO) 0 % (0-6); HEMATOCRIT 22.1 % (42.0-52.0); HEMOGLOBIN 7.5 g/dl (14.0-17.9); LYMPHOCYTES # (AUTO) 0.5 X10'3 (1.1-4.8); LYMPHOCYTES % (AUTO) 2.3 % (21-51); MEAN CORPUSCULAR HEMOGLOBIN 33.8 PG (27.0-31.0); MEAN CORPUSCULAR HGB CONC 33.8 g/dL (33.0-36.5); MEAN CORPUSCULAR VOLUME 100.2 FL (78-98); MEAN PLATELET VOLUME 9.8 FL (7.4-10.4); MONOCYTES # (AUTO) 0.9 X10'3 (0-0.9); NEUTROPHILS # (AUTO) 20.6 X10'3 (1.8-7.7); NEUTROPHILS % (AUTO) 93.5 % (42-75); PLATELET COUNT 80 X10'3 (140-440); RED BLOOD COUNT 2.21 X10'6 (4.70-6.10); RED CELL DISTRIBUTION WIDTH 16.6 % (11.5-14.5)
[2021-01-05 12:14] LABS: PARTIAL THROMBOPLASTIN TIME 24 SECONDS (22-32)
[2021-01-05 12:17] LABS: ALANINE AMINOTRANSFERASE 247 U/L (12-78); ALBUMIN 2.2 G/DL (3.4-5.0); ALBUMIN/GLOBULIN RATIO 0.6 (1.1-1.5); ALKALINE PHOSPHATASE 246 IU/L (46-116); ANION GAP 10 (8-16); ASPARTATE AMINO TRANSFERASE 350 U/L (10-37); BILIRUBIN,TOTAL 0.5 MG/DL (0.1-1.0); BLOOD UREA NITROGEN 38 MG/DL (7-18); BUN/CREATININE RATIO 35.2 (5.4-32.0); CALCIUM 8.2 MG/DL (8.5-10.1); CHLORIDE 110 MMOL/L (99-107); CREATININE 1.08 MG/DL (0.60-1.10); GLUCOSE 128 MG/DL (70-104); POTASSIUM 3.2 MMOL/L (3.5-5.1); SODIUM 148 MMOL/L (135-145); TOTAL CARBON DIOXIDE 27.6 MMOL/L (24-32); TOTAL PROTEIN 5.9 G/DL (6.4-8.2); eGFR 80 ML/MIN
[2021-01-05 12:28] LABS: BILIRUBIN,DIRECT 0.1 MG/DL (0-0.3); CREATINE KINASE 40 U/L (39-308); MAGNESIUM 2.2 MG/DL (1.5-2.4); PHOSPHORUS 3.6 MG/DL (2.3-4.5)
[2021-01-05] MEDS: levoTHYROXINE sod inj. 200 MCG in normal saline 500ml IV soln 490 ML IV SCH (13:00)
[2021-01-05 13:54] LABS: ANISOCYTOSIS 1+; PLATELET ESTIMATE DECREASED; TOTAL CELLS COUNTED 100
[2021-01-05] MEDS ORDERED: furosemide 40mg/4ml inj ONE (14:16)
[2021-01-05 15:21] LABS: ABG BASE EXCESS 3.8 mmol/L (-2.0-2.0); ABG HCO3 27.3 mmol/L (22.0-26.0); ABG OXYGEN SATURATION 98.5 % (94-97); ABG PCO2 (T) 36.6 mmHg (35.0-48.0); ABG PO2 (T) 130.5 mmHg (75.0-100.0); FCOHb 0.3 % (0.0-3.9); FMetHb 0.4 % (0.0-1.5); FO2Hb 97.8 % (94-97); PEEP 10 cm H2O; RESPIRATORY RATE 20 b/min; TIDAL VOLUME 550 mL; TOTAL HEMOGLOBIN 8.2 G/dl (14.0-18.0)
[2021-01-05] MEDS: potassium Cl 20mEq/100mL bag 100 ML IV PRN ×3 (15:31→22:45)
[2021-01-05] MEDS ORDERED: midazolam 1 mg/ML 2ml injection ONE (16:07)
[2021-01-05] MEDS ORDERED: fentaNYL/PF 50MCG/1 ML 2ML syringe ONE (16:08)
[2021-01-05] MEDS ORDERED: iohexol 350 MG/ML 50ML vial IV ONE (16:09)
[2021-01-05] MEDS ORDERED: LIDOcaine 1% (10mg/ml)w/preservative injection 20ml MDV ONE (16:09)
[2021-01-05] MEDS ORDERED: iohexol 350MG/ML 100ml bottle IV ONE (16:10)
[2021-01-05] MEDS ORDERED: dextrose 50%-water 50ml dispensing syringe IV ONE (16:31)
[2021-01-05] MEDS: DEXTROSE 5% IV SCH (16:44)
[2021-01-05] MEDS: METHYLPREDNISOLONE SOD SUCC IV SCH (16:44)
[2021-01-05] MEDS: WATER IV SCH (16:44)
--- NOTE | 2021-01-05 16:45 | NUR ---
to brine room laborer
[2021-01-05 17:50] LABS: CLARITY,URINE SLIGHTLY CLOUDY (Clear); COLOR,URINE YELLOW (Yellow); GLUCOSE, URINE NEGATIVE (Neg); KETONES,URINE NEGATIVE (Neg); LEUKOCYTE ESTERASE ,URINE NEGATIVE (Neg); NITRITES, URINE NEGATIVE (Neg); OCCULT BLOOD,URINE NEGATIVE (Neg); PROTEIN,URINE NEGATIVE (Neg); UA COLLECTION TYPE FOLEY CATH; UROBILINOGEN,URINE 0.2 E.U/dL (0.2-1.0)
[2021-01-05 18:11] LABS: BACTERIA,URINE NONE SEEN /HPF (Neg); MUCUS STRANDS FEW /LPF (Neg); RBC,URINE NONE SEEN /HPF (0-2); SQUAMOUS EPITHELIAL CELL,UR FEW /LPF (FEW); WBC,URINE 0-4 /HPF (0-4)
[2021-01-05 18:13] LABS: HYALINE CASTS 0-3 /LPF (NEGATIVE); URIC ACID CRYSTALS 2+ /HPF (NEGATIVE)
--- NOTE | 2021-01-05 18:30 | NUR ---
Patient in room ICU 2039. I have received report from Griselda THOMPSON and had the opportunity to ask questions and assume patient care.
[2021-01-05] MEDS: vasopressin 40 UNIT in D5W 40ml IV DRIP IV SCH (18:37)
--- NOTE | 2021-01-05 19:00 | NUR ---
HCT critical 21.5, HGB 7.3. New orders received to transfuse 2 units of PRBC.
[2021-01-05 19:04] LABS: BASOPHILS % (AUTO) 0.1 % (0-1); EOSINOPHILS % (AUTO) 0 % (0-6); HEMOGLOBIN 7.3 g/dl (14.0-17.9); LYMPHOCYTES # (AUTO) 0.5 X10'3 (1.1-4.8); LYMPHOCYTES % (AUTO) 2.2 % (21-51); MEAN CORPUSCULAR HEMOGLOBIN 33.5 PG (27.0-31.0); MEAN CORPUSCULAR HGB CONC 33.8 g/dL (33.0-36.5); MEAN CORPUSCULAR VOLUME 99.2 FL (78-98); MEAN PLATELET VOLUME 9.8 FL (7.4-10.4); MONOCYTES # (AUTO) 0.9 X10'3 (0-0.9); MONOCYTES % (AUTO) 4.2 % (2-12); NEUTROPHILS # (AUTO) 20.5 X10'3 (1.8-7.7); NEUTROPHILS % (AUTO) 93.5 % (42-75); PLATELET COUNT 94 X10'3 (140-440); RED BLOOD COUNT 2.17 X10'6 (4.70-6.10); RED CELL DISTRIBUTION WIDTH 16.4 % (11.5-14.5)
[2021-01-05 19:09] LABS: PARTIAL THROMBOPLASTIN TIME 25 SECONDS (22-32)
[2021-01-05 19:11] LABS: ALANINE AMINOTRANSFERASE 224 U/L (12-78); ALBUMIN 2.4 G/DL (3.4-5.0); ALBUMIN/GLOBULIN RATIO 0.7 (1.1-1.5); ALKALINE PHOSPHATASE 237 IU/L (46-116); ANION GAP 13 (8-16); ASPARTATE AMINO TRANSFERASE 337 U/L (10-37); BILIRUBIN,TOTAL 0.8 MG/DL (0.1-1.0); BLOOD UREA NITROGEN 38 MG/DL (7-18); BUN/CREATININE RATIO 33.3 (5.4-32.0); CALCIUM 8.1 MG/DL (8.5-10.1); CHLORIDE 109 MMOL/L (99-107); CREATININE 1.14 MG/DL (0.60-1.10); GLUCOSE 159 MG/DL (70-104); POTASSIUM 3.3 MMOL/L (3.5-5.1); SODIUM 148 MMOL/L (135-145); TOTAL CARBON DIOXIDE 26.3 MMOL/L (24-32); TOTAL PROTEIN 5.9 G/DL (6.4-8.2); eGFR 75 ML/MIN
[2021-01-05 19:13] LABS: HEMATOCRIT 21.5 % (42.0-52.0)
[2021-01-05 19:22] LABS: BILIRUBIN,DIRECT 0.2 MG/DL (0-0.3); CREATINE KINASE 45 U/L (39-308); MAGNESIUM 2.1 MG/DL (1.5-2.4); PHOSPHORUS 4.5 MG/DL (2.3-4.5)
[2021-01-05 19:28] LABS: ABG BASE EXCESS 1.7 mmol/L (-2.0-2.0); ABG OXYGEN SATURATION 89.2 % (94-97); ABG PCO2 (T) 32.7 mmHg (35.0-48.0); ABG PO2 (T) 52.9 mmHg (75.0-100.0); FCOHb 0.3 % (0.0-3.9); FMetHb 0.3 % (0.0-1.5); FO2Hb 88.7 % (94-97); PATIENT TEMPERATURE 36.2; PEEP 10 cm H2O; RESPIRATORY RATE 20 b/min; TIDAL VOLUME 550 mL; TOTAL HEMOGLOBIN 8.1 G/dl (14.0-18.0)
[2021-01-05] MEDS ORDERED: albumin (human) 25% 100 ML IV solution IV ONE (19:35)
[2021-01-05] MEDS: insulin regular, human U-100 3ml vial - multi-dose IV PRN (22:25)
[2021-01-05] MEDS: INSULIN REGULAR, HUMAN 100 UNITS in NORMAL SALINE 100ml IV SCH (23:38)
[2021-01-05 23:52] LABS: ABG BASE EXCESS 4.1 mmol/L (-2.0-2.0); ABG HCO3 28.3 mmol/L (22.0-26.0); ABG OXYGEN SATURATION 98.4 % (94-97); ABG PCO2 (T) 39.6 mmHg (35.0-48.0); ABG PO2 (T) 129.6 mmHg (75.0-100.0); FCOHb 0.3 % (0.0-3.9); FMetHb 0.2 % (0.0-1.5); FO2Hb 97.9 % (94-97); PATIENT TEMPERATURE 36.3; PEEP 10 cm H2O; RESPIRATORY RATE 18 b/min; TIDAL VOLUME 550 mL; TOTAL HEMOGLOBIN 10.3 G/dl (14.0-18.0)
[2021-01-06] VITALS (27 sets, daily range): BP systolic 116–161; BP diastolic 69–100
[2021-01-06] MEDS ORDERED: sodium bicarbonate (8.4%) 1 mEq/ml syringe IV ONE (00:05)
[2021-01-06 00:31] LABS: BASOPHILS % (AUTO) 0.1 % (0-1); EOSINOPHILS % (AUTO) 0 % (0-6); HEMATOCRIT 27.8 % (42.0-52.0); HEMOGLOBIN 9.7 g/dl (14.0-17.9); LYMPHOCYTES # (AUTO) 0.5 X10'3 (1.1-4.8); LYMPHOCYTES % (AUTO) 2.3 % (21-51); MEAN CORPUSCULAR HGB CONC 34.8 g/dL (33.0-36.5); MEAN CORPUSCULAR VOLUME 97.6 FL (78-98); MEAN PLATELET VOLUME 9.5 FL (7.4-10.4); MONOCYTES # (AUTO) 0.8 X10'3 (0-0.9); MONOCYTES % (AUTO) 3.4 % (2-12); NEUTROPHILS # (AUTO) 21.5 X10'3 (1.8-7.7); NEUTROPHILS % (AUTO) 94.2 % (42-75); PLATELET COUNT 94 X10'3 (140-440); RED BLOOD COUNT 2.84 X10'6 (4.70-6.10); RED CELL DISTRIBUTION WIDTH 15.8 % (11.5-14.5); WHITE BLOOD COUNT 22.9 X10'3 (4.5-11.0)
[2021-01-06 00:43] LABS: PARTIAL THROMBOPLASTIN TIME 25 SECONDS (22-32)
[2021-01-06 00:44] LABS: ALANINE AMINOTRANSFERASE 221 U/L (12-78); ALBUMIN 2.7 G/DL (3.4-5.0); ALBUMIN/GLOBULIN RATIO 0.7 (1.1-1.5); ALKALINE PHOSPHATASE 243 IU/L (46-116); ANION GAP 11 (8-16); ASPARTATE AMINO TRANSFERASE 320 U/L (10-37); BILIRUBIN,TOTAL 0.8 MG/DL (0.1-1.0); BLOOD UREA NITROGEN 34 MG/DL (7-18); BUN/CREATININE RATIO 28.8 (5.4-32.0); CHLORIDE 107 MMOL/L (99-107); CREATININE 1.18 MG/DL (0.60-1.10); GLUCOSE 175 MG/DL (70-104); POTASSIUM 3.1 MMOL/L (3.5-5.1); SODIUM 147 MMOL/L (135-145); TOTAL CARBON DIOXIDE 29.2 MMOL/L (24-32); TOTAL PROTEIN 6.4 G/DL (6.4-8.2); eGFR 72 ML/MIN
[2021-01-06 00:55] LABS: BILIRUBIN,DIRECT 0.2 MG/DL (0-0.3); CREATINE KINASE 48 U/L (39-308); MAGNESIUM 2.1 MG/DL (1.5-2.4); PHOSPHORUS 4.2 MG/DL (2.3-4.5)
[2021-01-06] MEDS: piperacillin/tazo 3.375gm/50ml 50 ML IV SCH ×3 (01:12→16:56)
[2021-01-06] MEDS: potassium Cl 20mEq/100mL bag 100 ML IV PRN ×5 (01:12→19:25)
[2021-01-06 01:23] LABS: TOTAL CELLS COUNTED 100
[2021-01-06 01:24] LABS: PLATELET ESTIMATE DECREASED
[2021-01-06] MEDS: polyvinyl alcohol ophthalmic drops 15ml bottle EACHEYE SCH ×12 (01:52→23:05)
[2021-01-06] MEDS: albuterol 2.5 MG/3 ML nebule NEB SCH ×6 (03:04→22:52)
[2021-01-06 05:11] LABS: ABG BASE EXCESS 5.9 mmol/L (-2.0-2.0); ABG HCO3 29.3 mmol/L (22.0-26.0); ABG OXYGEN SATURATION 95.1 % (94-97); ABG PCO2 (T) 37.3 mmHg (35.0-48.0); ABG PO2 (T) 71.6 mmHg (75.0-100.0); FCOHb 0.2 % (0.0-3.9); FMetHb 0.2 % (0.0-1.5); FO2Hb 94.7 % (94-97); PATIENT TEMPERATURE 36.5; PEEP 10 cm H2O; RESPIRATORY RATE 18 b/min; TIDAL VOLUME 550 mL; TOTAL HEMOGLOBIN 10.1 G/dl (14.0-18.0)
[2021-01-06 05:20] LABS: BASOPHILS % (AUTO) 0.2 % (0-1); EOSINOPHILS % (AUTO) 0 % (0-6); HEMATOCRIT 27.5 % (42.0-52.0); HEMOGLOBIN 9.6 g/dl (14.0-17.9); LYMPHOCYTES # (AUTO) 0.4 X10'3 (1.1-4.8); LYMPHOCYTES % (AUTO) 1.8 % (21-51); MEAN CORPUSCULAR HEMOGLOBIN 34.2 PG (27.0-31.0); MEAN CORPUSCULAR VOLUME 97.7 FL (78-98); MEAN PLATELET VOLUME 9.6 FL (7.4-10.4); MONOCYTES # (AUTO) 0.7 X10'3 (0-0.9); MONOCYTES % (AUTO) 3.3 % (2-12); NEUTROPHILS # (AUTO) 20.2 X10'3 (1.8-7.7); NEUTROPHILS % (AUTO) 94.7 % (42-75); PLATELET COUNT 103 X10'3 (140-440); RED BLOOD COUNT 2.81 X10'6 (4.70-6.10); RED CELL DISTRIBUTION WIDTH 15.8 % (11.5-14.5); WHITE BLOOD COUNT 21.4 X10'3 (4.5-11.0)
[2021-01-06 05:27] LABS: PARTIAL THROMBOPLASTIN TIME 25 SECONDS (22-32)
[2021-01-06 05:38] LABS: ALANINE AMINOTRANSFERASE 206 U/L (12-78); ALBUMIN 2.6 G/DL (3.4-5.0); ALBUMIN/GLOBULIN RATIO 0.7 (1.1-1.5); ALKALINE PHOSPHATASE 226 IU/L (46-116); ANION GAP 10 (8-16); ASPARTATE AMINO TRANSFERASE 287 U/L (10-37); BILIRUBIN,TOTAL 0.6 MG/DL (0.1-1.0); BLOOD UREA NITROGEN 34 MG/DL (7-18); BUN/CREATININE RATIO 30.4 (5.4-32.0); CALCIUM 8.2 MG/DL (8.5-10.1); CHLORIDE 109 MMOL/L (99-107); CREATININE 1.12 MG/DL (0.60-1.10); GLUCOSE 164 MG/DL (70-104); POTASSIUM 3.4 MMOL/L (3.5-5.1); SODIUM 151 MMOL/L (135-145); TOTAL CARBON DIOXIDE 31.6 MMOL/L (24-32); TOTAL PROTEIN 6.1 G/DL (6.4-8.2); eGFR 77 ML/MIN
[2021-01-06 05:41] LABS: BILIRUBIN,DIRECT 0.2 MG/DL (0-0.3); CREATINE KINASE 51 U/L (39-308); MAGNESIUM 2.2 MG/DL (1.5-2.4); PHOSPHORUS 3.9 MG/DL (2.3-4.5)
--- NOTE | 2021-01-06 06:22 | NUR ---
Problems reprioritized. Patient report given, questions answered & plan of care reviewed with Mer THOMPSON.
[2021-01-06 06:28] LABS: ISTAT HGB ART 7.1 g/dl (14.0-18.0); ISTAT Hct ART 21 %PCV (42-52); ISTAT Hct MIX 23 %PCV (42-52); ISTAT O2 SATURATION ARTERIAL 97 % (95-98); ISTAT O2 SATURATION MIX VENOUS 80 % (60-80); ISTAT SOURCE BLNK
[2021-01-06] MEDS: Potassium Cl inj 20 MEQ in dextrose 5%-water 990 ML IV SCH ×2 (07:30→19:40)
[2021-01-06] MEDS: pantoprazole 40 MG vial IV SCH (08:12)
[2021-01-06 10:28] LABS: ABG BASE EXCESS 6.2 mmol/L (-2.0-2.0); ABG HCO3 30.4 mmol/L (22.0-26.0); ABG OXYGEN SATURATION 97.7 % (94-97); ABG PCO2 (T) 42.2 mmHg (35.0-48.0); ABG PO2 (T) 110.5 mmHg (75.0-100.0); FCOHb 0.2 % (0.0-3.9); FMetHb 0.3 % (0.0-1.5); FO2Hb 97.2 % (94-97); PEEP 10 cm H2O; RESPIRATORY RATE 14 b/min; TIDAL VOLUME 500 mL; TOTAL HEMOGLOBIN 10.4 G/dl (14.0-18.0)
[2021-01-06 12:17] LABS: BASOPHILS % (AUTO) 0.1 % (0-1); EOSINOPHILS % (AUTO) 0 % (0-6); HEMATOCRIT 28.6 % (42.0-52.0); HEMOGLOBIN 9.7 g/dl (14.0-17.9); LYMPHOCYTES # (AUTO) 0.5 X10'3 (1.1-4.8); LYMPHOCYTES % (AUTO) 2.2 % (21-51); MEAN CORPUSCULAR HEMOGLOBIN 33.6 PG (27.0-31.0); MEAN CORPUSCULAR HGB CONC 33.8 g/dL (33.0-36.5); MEAN CORPUSCULAR VOLUME 99.5 FL (78-98); MEAN PLATELET VOLUME 9.5 FL (7.4-10.4); MONOCYTES % (AUTO) 4.4 % (2-12); NEUTROPHILS % (AUTO) 93.3 % (42-75); PLATELET COUNT 122 X10'3 (140-440); RED BLOOD COUNT 2.88 X10'6 (4.70-6.10); RED CELL DISTRIBUTION WIDTH 16.2 % (11.5-14.5); WHITE BLOOD COUNT 22.5 X10'3 (4.5-11.0)
[2021-01-06 12:25] LABS: PARTIAL THROMBOPLASTIN TIME 24 SECONDS (22-32)
[2021-01-06 12:27] LABS: ALANINE AMINOTRANSFERASE 195 U/L (12-78); ALBUMIN 2.5 G/DL (3.4-5.0); ALBUMIN/GLOBULIN RATIO 0.7 (1.1-1.5); ALKALINE PHOSPHATASE 211 IU/L (46-116); ANION GAP 9 (8-16); ASPARTATE AMINO TRANSFERASE 252 U/L (10-37); BILIRUBIN,TOTAL 0.6 MG/DL (0.1-1.0); BLOOD UREA NITROGEN 36 MG/DL (7-18); CALCIUM 8.2 MG/DL (8.5-10.1); CHLORIDE 113 MMOL/L (99-107); CREATININE 1.03 MG/DL (0.60-1.10); GLUCOSE 145 MG/DL (70-104); POTASSIUM 3.8 MMOL/L (3.5-5.1); SODIUM 153 MMOL/L (135-145); TOTAL CARBON DIOXIDE 31.5 MMOL/L (24-32); TOTAL PROTEIN 5.9 G/DL (6.4-8.2); eGFR 85 ML/MIN
[2021-01-06 12:38] LABS: BILIRUBIN,DIRECT 0.2 MG/DL (0-0.3); CREATINE KINASE 52 U/L (39-308); MAGNESIUM 2.4 MG/DL (1.5-2.4); PHOSPHORUS 3.5 MG/DL (2.3-4.5)
[2021-01-06] MEDS ORDERED: potassium Cl 20 mEq/100mL bag IV ONE (13:15)
[2021-01-06] MEDS ORDERED: Potassium Cl inj 20 MEQ in dextrose 5%-water 990 ML IV SCH (13:15)
[2021-01-06 13:59] LABS: ABG BASE EXCESS 6.6 mmol/L (-2.0-2.0); ABG HCO3 30.5 mmol/L (22.0-26.0); ABG OXYGEN SATURATION 96.9 % (94-97); ABG PO2 (T) 96.1 mmHg (75.0-100.0); FCOHb 0.3 % (0.0-3.9); FMetHb 0.3 % (0.0-1.5); FO2Hb 96.3 % (94-97); PEEP 10 cm H2O; RESPIRATORY RATE 14 b/min; TIDAL VOLUME 550 mL; TOTAL HEMOGLOBIN 10.6 G/dl (14.0-18.0)
[2021-01-06 14:12] LABS: CLARITY,URINE SLIGHTLY CLOUDY (Clear); COLOR,URINE STRAW (Yellow); GLUCOSE, URINE NEGATIVE (Neg); KETONES,URINE NEGATIVE (Neg); OCCULT BLOOD,URINE NEGATIVE (Neg); PH,URINE 6.5 (4.8-8.0); PROTEIN,URINE NEGATIVE (Neg); UA COLLECTION TYPE NON-SPECIFIED
[2021-01-06 14:13] LABS: LEUKOCYTE ESTERASE ,URINE NEGATIVE (Neg); NITRITES, URINE NEGATIVE (Neg); UROBILINOGEN,URINE 0.2 E.U/dL (0.2-1.0)
[2021-01-06 14:29] LABS: BACTERIA,URINE FEW /HPF (Neg); FINE GRANULAR CAST 0-3 /LPF (NEGATIVE); HYALINE CASTS 0-3 /LPF (NEGATIVE); MUCUS STRANDS FEW /LPF (Neg); RBC,URINE 0-2 /HPF (0-2); SQUAMOUS EPITHELIAL CELL,UR FEW /LPF (FEW); WBC,URINE 0-4 /HPF (0-4)
[2021-01-06] MEDS: Potassium Cl inj 20 MEQ in dextrose 5%-water 1,000 ML IV SCH ×2 (14:40→23:40)
[2021-01-06] MEDS: WATER IV SCH (16:51)
[2021-01-06] MEDS: DEXTROSE 5% IV SCH (16:51)
[2021-01-06] MEDS: METHYLPREDNISOLONE SOD SUCC IV SCH (16:51)
[2021-01-06] MEDS: vasopressin 40 UNIT in D5W 40ml IV DRIP IV SCH ×2 (16:57→21:44)
[2021-01-06 18:04] LABS: BASOPHILS % (AUTO) 0 % (0-1); EOSINOPHILS % (AUTO) 0 % (0-6); HEMATOCRIT 29.8 % (42.0-52.0); HEMOGLOBIN 10.1 g/dl (14.0-17.9); LYMPHOCYTES # (AUTO) 0.6 X10'3 (1.1-4.8); LYMPHOCYTES % (AUTO) 2.5 % (21-51); MEAN CORPUSCULAR HEMOGLOBIN 33.6 PG (27.0-31.0); MEAN CORPUSCULAR VOLUME 98.7 FL (78-98); MEAN PLATELET VOLUME 9.6 FL (7.4-10.4); MONOCYTES # (AUTO) 1.2 X10'3 (0-0.9); MONOCYTES % (AUTO) 5.4 % (2-12); NEUTROPHILS # (AUTO) 21.1 X10'3 (1.8-7.7); NEUTROPHILS % (AUTO) 92.1 % (42-75); PLATELET COUNT 143 X10'3 (140-440); RED BLOOD COUNT 3.02 X10'6 (4.70-6.10); RED CELL DISTRIBUTION WIDTH 16.3 % (11.5-14.5); WHITE BLOOD COUNT 22.9 X10'3 (4.5-11.0)
[2021-01-06 18:06] LABS: UA COLLECTION TYPE NON-SPECIFIED
[2021-01-06 18:13] LABS: PARTIAL THROMBOPLASTIN TIME 24 SECONDS (22-32)
[2021-01-06 18:16] LABS: CLARITY,URINE CLEAR (Clear); COLOR,URINE STRAW (Yellow); GLUCOSE, URINE NEGATIVE (Neg); KETONES,URINE NEGATIVE (Neg); LEUKOCYTE ESTERASE ,URINE NEGATIVE (Neg); NITRITES, URINE NEGATIVE (Neg); OCCULT BLOOD,URINE NEGATIVE (Neg); PROTEIN,URINE NEGATIVE (Neg); UROBILINOGEN,URINE 0.2 E.U/dL (0.2-1.0)
[2021-01-06 18:26] LABS: ALANINE AMINOTRANSFERASE 195 U/L (12-78); ALBUMIN 2.6 G/DL (3.4-5.0); ALBUMIN/GLOBULIN RATIO 0.7 (1.1-1.5); ALKALINE PHOSPHATASE 217 IU/L (46-116); ANION GAP 7 (8-16); ASPARTATE AMINO TRANSFERASE 250 U/L (10-37); BILIRUBIN,DIRECT 0.2 MG/DL (0-0.3); BILIRUBIN,TOTAL 0.7 MG/DL (0.1-1.0); BLOOD UREA NITROGEN 34 MG/DL (7-18); BUN/CREATININE RATIO 32.1 (5.4-32.0); CALCIUM 8.4 MG/DL (8.5-10.1); CHLORIDE 117 MMOL/L (99-107); CREATINE KINASE 55 U/L (39-308); CREATININE 1.06 MG/DL (0.60-1.10); GLUCOSE 175 MG/DL (70-104); MAGNESIUM 2.7 MG/DL (1.5-2.4); PHOSPHORUS 3.5 MG/DL (2.3-4.5); POTASSIUM 4.1 MMOL/L (3.5-5.1); TOTAL CARBON DIOXIDE 32.4 MMOL/L (24-32); TOTAL PROTEIN 6.3 G/DL (6.4-8.2); eGFR 82 ML/MIN
[2021-01-06 18:30] LABS: SODIUM 156 MMOL/L (135-145)
--- NOTE | 2021-01-06 18:30 | NUR ---
Patient in room ICU 2039. I have received report from Mer THOMPSON and had the opportunity to ask questions and assume patient care.
[2021-01-06] MEDS ORDERED: desmopressin 4 MCG/1 ML amp IV ONE (19:05)
[2021-01-06] MEDS ORDERED: insulin regular, human U-100 3ml vial - multi-dose IV ONE (19:25)
[2021-01-06] MEDS: dextrose 5%-water 1,000 ML IV SCH (19:27)
--- NOTE | 2021-01-06 19:30 | NUR ---
Received orders from [facility] to administer 2mcg DDAVP IVP, 8units of insulin IVP for blood sugar treatment instead of restarting the gtt, change IVF from D5 W with 20meq of Potassium @ 75ml/hr to D5 W @ 100ml/hr and repeat UA for specific gravity. Orders have been placed and will administer medications as they become available from pharmacy.
[2021-01-06 20:00] LABS: CLARITY,URINE CLEAR (Clear); COLOR,URINE STRAW (Yellow); UA COLLECTION TYPE FOLEY CATH
[2021-01-06 20:01] LABS: GLUCOSE, URINE NEGATIVE (Neg); KETONES,URINE NEGATIVE (Neg); LEUKOCYTE ESTERASE ,URINE NEGATIVE (Neg); NITRITES, URINE NEGATIVE (Neg); OCCULT BLOOD,URINE MODERATE (Neg); PROTEIN,URINE NEGATIVE (Neg); UROBILINOGEN,URINE 0.2 E.U/dL (0.2-1.0)
[2021-01-06 20:05] LABS: WBC,URINE 0-4 /HPF (0-4)
[2021-01-06 20:07] LABS: BACTERIA,URINE FEW /HPF (Neg)
[2021-01-06 20:08] LABS: AMORPHOUS URATES 1+; RBC,URINE 0-2 /HPF (0-2)
[2021-01-06 20:09] LABS: SQUAMOUS EPITHELIAL CELL,UR FEW /LPF (FEW)
[2021-01-06 20:26] LABS: ANISOCYTOSIS 1+; PLATELET ESTIMATE DECREASED; TOTAL CELLS COUNTED 100
--- NOTE | 2021-01-06 20:40 | NUR ---
Order received to start Vasopressin @ 0.01 units. Message has been sent to pharmacy and will start as soon as it becomes available.
[2021-01-06] MEDS: insulin regular, human U-100 3ml vial - multi-dose IV PRN ×2 (21:06→22:27)
--- NOTE | 2021-01-06 21:30 | NUR ---
Order received to give 1 unit PRBC's, HGB is 10.1 HCT is 29.8.
[2021-01-07] VITALS (16 sets, daily range): BP systolic 127–179; BP diastolic 80–110
[2021-01-07] MEDS: insulin regular, human U-100 3ml vial - multi-dose IV PRN (00:20)
[2021-01-07 00:43] LABS: BASOPHILS % (AUTO) 0.2 % (0-1); EOSINOPHILS % (AUTO) 0 % (0-6); HEMOGLOBIN 10.6 g/dl (14.0-17.9); LYMPHOCYTES # (AUTO) 0.3 X10'3 (1.1-4.8); LYMPHOCYTES % (AUTO) 1.3 % (21-51); MEAN CORPUSCULAR HEMOGLOBIN 33.7 PG (27.0-31.0); MEAN CORPUSCULAR HGB CONC 34.3 g/dL (33.0-36.5); MEAN CORPUSCULAR VOLUME 98.3 FL (78-98); MEAN PLATELET VOLUME 9.2 FL (7.4-10.4); MONOCYTES # (AUTO) 0.4 X10'3 (0-0.9); MONOCYTES % (AUTO) 1.9 % (2-12); NEUTROPHILS % (AUTO) 96.6 % (42-75); PLATELET COUNT 157 X10'3 (140-440); RED BLOOD COUNT 3.16 X10'6 (4.70-6.10); RED CELL DISTRIBUTION WIDTH 16.9 % (11.5-14.5); WHITE BLOOD COUNT 20.7 X10'3 (4.5-11.0)
[2021-01-07 00:59] LABS: PARTIAL THROMBOPLASTIN TIME 23 SECONDS (22-32)
[2021-01-07] MEDS: piperacillin/tazo 3.375gm/50ml 50 ML IV SCH ×2 (01:04→08:41)
[2021-01-07] MEDS: polyvinyl alcohol ophthalmic drops 15ml bottle EACHEYE SCH ×6 (01:04→11:00)
[2021-01-07 01:06] LABS: ALANINE AMINOTRANSFERASE 182 U/L (12-78); ALBUMIN 2.5 G/DL (3.4-5.0); ALBUMIN/GLOBULIN RATIO 0.7 (1.1-1.5); ALKALINE PHOSPHATASE 211 IU/L (46-116); ANION GAP 6 (8-16); ASPARTATE AMINO TRANSFERASE 219 U/L (10-37); BILIRUBIN,DIRECT 0.2 MG/DL (0-0.3); BILIRUBIN,TOTAL 0.6 MG/DL (0.1-1.0); BLOOD UREA NITROGEN 39 MG/DL (7-18); BUN/CREATININE RATIO 36.4 (5.4-32.0); CALCIUM 8.3 MG/DL (8.5-10.1); CHLORIDE 119 MMOL/L (99-107); CREATINE KINASE 54 U/L (39-308); CREATININE 1.07 MG/DL (0.60-1.10); GLUCOSE 193 MG/DL (70-104); MAGNESIUM 2.7 MG/DL (1.5-2.4); PHOSPHORUS 3.4 MG/DL (2.3-4.5); POTASSIUM 4.2 MMOL/L (3.5-5.1); TOTAL CARBON DIOXIDE 32.5 MMOL/L (24-32); TOTAL PROTEIN 6.3 G/DL (6.4-8.2); eGFR 81 ML/MIN
[2021-01-07 01:13] LABS: SODIUM 157 MMOL/L (135-145)
[2021-01-07 01:19] LABS: ANISOCYTOSIS 1+; NUCLEATED RED BLOOD CELLS 2 /100WBC (0-0); PLATELET ESTIMATE NORMAL; TOTAL CELLS COUNTED 100
[2021-01-07 01:22] LABS: POLYCHROMASIA FEW
--- NOTE | 2021-01-07 01:30 | NUR ---
Order received to give 10mg IVP Lasix d/t U/O trending down.
[2021-01-07] MEDS ORDERED: furosemide 20 MG/2 ML vial IV ONE ×2 (01:35→10:35)
[2021-01-07] MEDS: albuterol 2.5 MG/3 ML nebule NEB SCH ×3 (02:30→11:24)
[2021-01-07] MEDS ORDERED: rocuronium 10mg/ml inj IV ONE (05:10)
--- NOTE | 2021-01-07 05:20 | NUR ---
Order received from [facility] to give 50mg IVP Rocuronium and then to not do much with the patient. PM Personal hygiene has been performed. PT has not been turned this shift under the instruction of [facility]. Will pass information along to oncoming shift.
--- NOTE | 2021-01-07 06:26 | NUR ---
Problems reprioritized. Patient report given, questions answered & plan of care reviewed with Jessi THOMPSON.
[2021-01-07] MEDS ORDERED: hydrALAZINE 20mg/ml inj. IV ONE (06:30)
--- NOTE | 2021-01-07 06:30 | NUR ---
Patient in room ICU 2039. I have received report from urban and had the opportunity to ask questions and assume patient care.
[2021-01-07 06:31] LABS: PARTIAL THROMBOPLASTIN TIME 24 SECONDS (22-32)
[2021-01-07 06:33] LABS: BASOPHILS % (AUTO) 0.1 % (0-1); EOSINOPHILS % (AUTO) 0 % (0-6); HEMATOCRIT 31.5 % (42.0-52.0); HEMOGLOBIN 10.8 g/dl (14.0-17.9); LYMPHOCYTES # (AUTO) 0.4 X10'3 (1.1-4.8); LYMPHOCYTES % (AUTO) 1.8 % (21-51); MEAN CORPUSCULAR HEMOGLOBIN 33.6 PG (27.0-31.0); MEAN CORPUSCULAR HGB CONC 34.4 g/dL (33.0-36.5); MEAN CORPUSCULAR VOLUME 97.5 FL (78-98); MEAN PLATELET VOLUME 9.7 FL (7.4-10.4); MONOCYTES # (AUTO) 0.6 X10'3 (0-0.9); MONOCYTES % (AUTO) 3.2 % (2-12); NEUTROPHILS # (AUTO) 18.5 X10'3 (1.8-7.7); NEUTROPHILS % (AUTO) 94.9 % (42-75); PLATELET COUNT 159 X10'3 (140-440); RED BLOOD COUNT 3.23 X10'6 (4.70-6.10); RED CELL DISTRIBUTION WIDTH 17.1 % (11.5-14.5); WHITE BLOOD COUNT 19.5 X10'3 (4.5-11.0)
[2021-01-07] MEDS: dextrose 5%-water 1,000 ML IV SCH (06:36)
[2021-01-07 06:45] LABS: ALANINE AMINOTRANSFERASE 165 U/L (12-78); ALBUMIN 2.5 G/DL (3.4-5.0); ALBUMIN/GLOBULIN RATIO 0.7 (1.1-1.5); ALKALINE PHOSPHATASE 207 IU/L (46-116); ANION GAP 9 (8-16); ASPARTATE AMINO TRANSFERASE 209 U/L (10-37); BILIRUBIN,DIRECT 0.1 MG/DL (0-0.3); BILIRUBIN,TOTAL 0.5 MG/DL (0.1-1.0); BLOOD UREA NITROGEN 36 MG/DL (7-18); CALCIUM 8.4 MG/DL (8.5-10.1); CHLORIDE 116 MMOL/L (99-107); CREATINE KINASE 53 U/L (39-308); GLUCOSE 166 MG/DL (70-104); MAGNESIUM 2.7 MG/DL (1.5-2.4); PHOSPHORUS 3.9 MG/DL (2.3-4.5); POTASSIUM 3.8 MMOL/L (3.5-5.1); TOTAL CARBON DIOXIDE 32.2 MMOL/L (24-32); TOTAL PROTEIN 6.1 G/DL (6.4-8.2); eGFR 88 ML/MIN
[2021-01-07 06:48] LABS: SODIUM 157 MMOL/L (135-145)
[2021-01-07] MEDS: potassium Cl 20mEq/100mL bag 100 ML IV PRN (08:25)
[2021-01-07] MEDS: pantoprazole 40 MG vial IV SCH (08:41)
[2021-01-07 08:53] LABS: ANISOCYTOSIS 1+; PLATELET ESTIMATE NORMAL; TOTAL CELLS COUNTED 100
[2021-01-07 08:54] LABS: LARGE PLATELETS FEW; POLYCHROMASIA FEW
[2021-01-07] MEDS: Potassium Cl inj 20 MEQ in dextrose 5%-water 990 ML IV SCH (09:00)
--- NOTE | 2021-01-07 09:30 | NUR ---
labs to lab. blood sugar decreasing last 3 hours- insulin off. hydralazine and anton given this am for bp of 170/110, now 140's to 120's
[2021-01-07] MEDS ORDERED: NORepinephrine 8mg/ 250ml NS 250 ML IV ONE (09:35)
[2021-01-07] MEDS: Potassium Cl inj 20 MEQ in dextrose 5%-water 1,000 ML IV SCH (09:46)
[2021-01-07 09:51] LABS: BASOPHILS % (AUTO) 0.1 % (0-1); EOSINOPHILS % (AUTO) 0 % (0-6); HEMOGLOBIN 10.7 g/dl (14.0-17.9); LYMPHOCYTES # (AUTO) 0.4 X10'3 (1.1-4.8); LYMPHOCYTES % (AUTO) 2.2 % (21-51); MEAN CORPUSCULAR HEMOGLOBIN 33.1 PG (27.0-31.0); MEAN CORPUSCULAR HGB CONC 33.5 g/dL (33.0-36.5); MEAN CORPUSCULAR VOLUME 98.8 FL (78-98); MEAN PLATELET VOLUME 9.4 FL (7.4-10.4); MONOCYTES # (AUTO) 0.8 X10'3 (0-0.9); MONOCYTES % (AUTO) 4.5 % (2-12); NEUTROPHILS # (AUTO) 17.4 X10'3 (1.8-7.7); NEUTROPHILS % (AUTO) 93.2 % (42-75); PLATELET COUNT 161 X10'3 (140-440); RED BLOOD COUNT 3.24 X10'6 (4.70-6.10); RED CELL DISTRIBUTION WIDTH 17.2 % (11.5-14.5); WHITE BLOOD COUNT 18.7 X10'3 (4.5-11.0)
[2021-01-07 09:58] LABS: PARTIAL THROMBOPLASTIN TIME 24 SECONDS (22-32)
[2021-01-07 10:00] LABS: CHLORIDE 116 MMOL/L (99-107); GLUCOSE 140 MG/DL (70-104); POTASSIUM 4.2 MMOL/L (3.5-5.1); SODIUM 154 MMOL/L (135-145)
[2021-01-07 10:01] LABS: ALANINE AMINOTRANSFERASE 161 U/L (12-78); ALBUMIN 2.4 G/DL (3.4-5.0); ALBUMIN/GLOBULIN RATIO 0.7 (1.1-1.5); ALKALINE PHOSPHATASE 192 IU/L (46-116); ANION GAP 5 (8-16); ASPARTATE AMINO TRANSFERASE 199 U/L (10-37); BILIRUBIN,TOTAL 0.5 MG/DL (0.1-1.0); BLOOD UREA NITROGEN 36 MG/DL (7-18); BUN/CREATININE RATIO 39.6 (5.4-32.0); CALCIUM 8.3 MG/DL (8.5-10.1); CREATININE 0.91 MG/DL (0.60-1.10); TOTAL CARBON DIOXIDE 32.7 MMOL/L (24-32); eGFR > 90 ML/MIN
[2021-01-07 10:07] LABS: CLARITY,URINE CLEAR (Clear); COLOR,URINE YELLOW (Yellow); GLUCOSE, URINE NEGATIVE (Neg); KETONES,URINE NEGATIVE (Neg); LEUKOCYTE ESTERASE ,URINE NEGATIVE (Neg); NITRITES, URINE NEGATIVE (Neg); OCCULT BLOOD,URINE NEGATIVE (Neg); PH,URINE 7.5 (4.8-8.0); PROTEIN,URINE NEGATIVE (Neg); UA COLLECTION TYPE FOLEY CATH; UROBILINOGEN,URINE 0.2 E.U/dL (0.2-1.0)
[2021-01-07 10:13] LABS: BILIRUBIN,DIRECT 0.1 MG/DL (0-0.3); CREATINE KINASE 56 U/L (39-308); MAGNESIUM 2.6 MG/DL (1.5-2.4); PHOSPHORUS 3.5 MG/DL (2.3-4.5)
--- NOTE | 2021-01-07 11:49 | NUR ---
lasix 10 ivp given for increased bp and increased pa pressures. effective- 600 cc the first hour. temp 35.9- warm blankets applied- temp to 36.2
[2021-01-07] MEDS ORDERED: albumin (human) 25% 100 ML IV solution IV ONE (12:45)
--- NOTE | 2021-01-07 13:18 | NUR ---
albumin 25% given for decreased sbp 90's- effective to 120's. many blood tubes and ua taken for annealing torch operator. pt to or by bed.
== END 2021-01-08 | DRG 207 ==
LOC: ER 18:34 → EDBD 21:19 → UNDOADMIN 21:19 → ED HOLD 21:19 → EEVIPCON 21:19 → EDBEDREQ 12-28 11:17 → ICU 2S 12-28 12:16 → ED HOLD 12-28 12:16 → PACU 01-07 13:31 → ICU 2S 01-07 13:31 → UNDODISIN 01-08
PROVIDERS: ADMIT Internal Medicine Critical Care Medicine
PROC: 5A1955Z Respiratory Ventilation, Greater than 96 Consecutive Hours (ICD-10-PCS; principal; 2020-12-27)
PROC: 0BH17EZ Insertion of Endotracheal Airway into Trachea, Via Natural or Artificial Opening (ICD-10-PCS; 2020-12-27)
PROC: 06HY33Z Insertion of Infusion Device into Lower Vein, Percutaneous Approach (ICD-10-PCS; 2020-12-27)
PROC: 5A12012 Performance of Cardiac Output, Single, Manual (ICD-10-PCS; 2020-12-27)
PROC: C0101ZZ Planar Nuclear Medicine Imaging of Brain using Technetium 99m (Tc-99m) (ICD-10-PCS; 2020-12-29)
PROC: B32T1ZZ Computerized Tomography (CT Scan) of Left Pulmonary Artery using Low Osmolar Contrast (ICD-10-PCS; 2020-12-30)
PROC: B3201ZZ Computerized Tomography (CT Scan) of Thoracic Aorta using Low Osmolar Contrast (ICD-10-PCS; 2020-12-30)
PROC: B32S1ZZ Computerized Tomography (CT Scan) of Right Pulmonary Artery using Low Osmolar Contrast (ICD-10-PCS; 2020-12-30)
PROC: 4A10X4Z Monitoring of Central Nervous Electrical Activity, External Approach (ICD-10-PCS; 2021-01-03)
PROC: 04HY32Z Insertion of Monitoring Device into Lower Artery, Percutaneous Approach (ICD-10-PCS; 2021-01-03)
PROC: 4A133B1 Monitoring of Arterial Pressure, Peripheral, Percutaneous Approach (ICD-10-PCS; 2021-01-03)
PROC: 4A133J1 Monitoring of Arterial Pulse, Peripheral, Percutaneous Approach (ICD-10-PCS; 2021-01-03)
PROC: B44FZZZ Ultrasonography of Right Lower Extremity Arteries (ICD-10-PCS; 2021-01-03)
PROC: C0101ZZ Planar Nuclear Medicine Imaging of Brain using Technetium 99m (Tc-99m) (ICD-10-PCS; 2021-01-04)
PROC: BW251ZZ Computerized Tomography (CT Scan) of Chest, Abdomen and Pelvis using Low Osmolar Contrast (ICD-10-PCS; 2021-01-04)
PROC: 30233N1 Transfusion of Nonautologous Red Blood Cells into Peripheral Vein, Percutaneous Approach (ICD-10-PCS; 2021-01-05)
PROC: 4A023N8 Measurement of Cardiac Sampling and Pressure, Bilateral, Percutaneous Approach (ICD-10-PCS; 2021-01-05)
PROC: B2111ZZ Fluoroscopy of Multiple Coronary Arteries using Low Osmolar Contrast (ICD-10-PCS; 2021-01-05)
PROC: B2151ZZ Fluoroscopy of Left Heart using Low Osmolar Contrast (ICD-10-PCS; 2021-01-05)
DX: J80 Acute respiratory distress syndrome (principal); E13.10 Other specified diabetes mellitus with ketoacidosis without coma; J15.4 Pneumonia due to other streptococci; A41.9 Sepsis, unspecified organism; R65.21 Severe sepsis with septic shock; D61.818 Other pancytopenia; G93.1 Anoxic brain damage, not elsewhere classified; N17.9 Acute kidney failure, unspecified; J98.11 Atelectasis; Z20.822 Contact with and (suspected) exposure to COVID-19; I46.9 Cardiac arrest, cause unspecified; Z59.00 Homelessness unspecified
CPT/HCPCS: 93306; 93308; 93460; 96360; 99291; 99292; Z7506; Z7508; 36415; 36430; 36600; 70450; 71045; 71260; 71275; 74177; 78606; 78610; 80048; 80053; 80076; 80202; 80305; 81001; 81003; 82140; 82150; 82248; 82330; 82550; 82553; 82803; 82948; 83036; 83605; 83690; 83735; 83935; 84100; 84134; 84145; 84295; 84478; 84484; 85007; 85014; 85018; 85025; 85347; 85610; 85730; 86885; 86900; 86901; 86920; 87040; 87070; 87077; 87186; 87635; 93005; 94002; 94003; 94640; 94760; 94799; 95816; A4618; A6258; A9521; C1751; C1769; C1894; C9113; C9803; G0378; J0131; J0360; J1644; J1720; J1815; J1940; J1956; J2001; J2250; J2543; J2597; J2704; J2930; J3010; J3370; J3475; J3480; J3490; J7030; J7040; J7050; J7060; J7070; J7120; P9016; P9045; P9047; Q9967